=== PATIENT | female | born 1945 | race African-American/Black ===

== ENCOUNTER 2019-02-18 08:34 | Day surgery (SDC) | payer OTHER ==
[2019-02-18 09:38] LABS: BASO % 0.1 % (0-2.0); HEMOGLOBIN 8.5 GM/dL (10.7-15.3); LYMPH % 12.3 % (8-40); MCH 36.6 pg (25.7-33.7); MCHC 32.8 g/dl (32.0-36.0); MEAN CELL VOLUME 111.7 fl (80-96); MEAN PLT VOLUME 7.5 fl (7.5-11.1); MONO % 4.6 % (3.8-10.2); PLATELET COUNT 260 K/MM3 (134-434); RBC 2.33 M/mm3 (3.60-5.2); RDW 14.6 % (11.6-15.6); WHITE BLOOD COUNT 16.9 K/mm3 (4.0-10.0)
[2019-02-18] MEDS ORDERED: BORTEZOMIB (VELCADE) 2.5 MG/ML SUB-Q INJECTION SQ ONE (10:00)
[2019-02-18 10:08] LABS: ALBUMIN 2.7 g/dl (3.4-5.0); BILIRUBIN,TOTAL 0.3 mg/dL (0.2-1); BLOOD UREA NITROGEN 32.2 mg/dL (7-18); CALCIUM 8.9 mg/dL (8.5-10.1); CREATININE 1.3 mg/dL (0.55-1.3); MAGNESIUM 1.7 mg/dL (1.8-2.4); POTASSIUM 3.8 mmol/L (3.5-5.1); PREALBUMIN 21.2 mg/dl (20-40)
[2019-02-18 11:05] LABS: ANISOCYTOSIS 1+; MACROCYTOSIS 2+; PLATELET ESTIMATE NORMAL
[2019-02-18 16:01] VITALS: BP 146/53; PULSE 61; TEMP 98.2
== END 2019-02-18 10:45 | disposition home or self-care (01) ==
LOC: J7W 08:34 → JCHEMO 08:34
PROVIDERS: ATTEND Internal Medicine Hematology & Oncology
DX: Z51.11 Encounter for antineoplastic chemotherapy (principal); C90.00 Multiple myeloma not having achieved remission
CPT/HCPCS: 36415; 80053; 83735; 84134; 85025; 96401; J9041

== ENCOUNTER 2019-02-25 11:20 | Day surgery (SDC) | payer OTHER ==
[2019-02-25 12:21] LABS: BASO % 0.1 % (0-2.0); HEMATOCRIT 25.4 % (32.4-45.2); HEMOGLOBIN 8.5 GM/dL (10.7-15.3); LYMPH % 14.8 % (8-40); MCH 37.4 pg (25.7-33.7); MCHC 33.6 g/dl (32.0-36.0); MEAN CELL VOLUME 111.5 fl (80-96); MEAN PLT VOLUME 7.8 fl (7.5-11.1); MONO % 2.3 % (3.8-10.2); NEUT % 82.8 % (42.8-82.8); PLATELET COUNT 239 K/MM3 (134-434); RBC 2.28 M/mm3 (3.60-5.2); RDW 14.7 % (11.6-15.6); WHITE BLOOD COUNT 5.8 K/mm3 (4.0-10.0)
[2019-02-25 12:47] LABS: ALBUMIN 2.9 g/dl (3.4-5.0); BILIRUBIN,DIRECT 0.1 mg/dL (0.0-0.2); BILIRUBIN,TOTAL 0.2 mg/dL (0.2-1); BLOOD UREA NITROGEN 34.8 mg/dL (7-18); CALCIUM 8.8 mg/dL (8.5-10.1); CREATININE 1.4 mg/dL (0.55-1.3); MAGNESIUM 2.1 mg/dL (1.8-2.4); POTASSIUM 3.5 mmol/L (3.5-5.1)
[2019-02-25 12:50] LABS: ANISOCYTOSIS 1+; MACROCYTOSIS 1+; PLATELET ESTIMATE NORMAL
[2019-02-25] MEDS ORDERED: BORTEZOMIB (VELCADE) 2.5 MG/ML SUB-Q INJECTION SQ ONE (13:30)
[2019-02-25 18:27] VITALS: BP 113/80; PULSE 64; TEMP 98.2
== END 2019-02-25 14:00 | disposition home or self-care (01) ==
LOC: JCHEMO 11:20 → J7W 11:24 → JCHEMO 14:00
PROVIDERS: ATTEND Internal Medicine Hematology & Oncology
DX: Z51.11 Encounter for antineoplastic chemotherapy (principal); C90.00 Multiple myeloma not having achieved remission
CPT/HCPCS: 36415; 80048; 80076; 83735; 85025; 96401; J9041

== ENCOUNTER 2019-03-04 07:57 | Day surgery (SDC) | payer OTHER ==
[2019-03-04 08:27] LABS: HEMATOCRIT 24.7 % (32.4-45.2); HEMOGLOBIN 8.5 GM/dL (10.7-15.3); MCH 37.9 pg (25.7-33.7); MCHC 34.5 g/dl (32.0-36.0); MEAN CELL VOLUME 109.8 fl (80-96); MEAN PLT VOLUME 8.8 fl (7.5-11.1); PLATELET COUNT 171 K/MM3 (134-434); RBC 2.25 M/mm3 (3.60-5.2); RDW 14.1 % (11.6-15.6); WHITE BLOOD COUNT 3.6 K/mm3 (4.0-10.0)
[2019-03-04 08:44] LABS: ALBUMIN 2.7 g/dl (3.4-5.0); BILIRUBIN,DIRECT 0.1 mg/dL (0.0-0.2); BILIRUBIN,TOTAL 0.2 mg/dL (0.2-1); BLOOD UREA NITROGEN 29.9 mg/dL (7-18); CALCIUM 8.5 mg/dL (8.5-10.1); CREATININE 1.5 mg/dL (0.55-1.3); MAGNESIUM 1.9 mg/dL (1.8-2.4); POTASSIUM 3.9 mmol/L (3.5-5.1); TOT PROT 6.5 g/dl (6.4-8.2)
[2019-03-04 09:05] VITALS: BP 129/53; PULSE 60; TEMP 98.2
[2019-03-04] MEDS ORDERED: BORTEZOMIB (VELCADE) 2.5 MG/ML SUB-Q INJECTION SQ ONE (10:00)
== END 2019-03-04 09:30 | disposition home or self-care (01) ==
LOC: JCHEMO 07:57 → J7W 07:58 → JCHEMO 09:30
PROVIDERS: ATTEND Internal Medicine Hematology & Oncology
DX: Z51.11 Encounter for antineoplastic chemotherapy (principal); C90.00 Multiple myeloma not having achieved remission
CPT/HCPCS: 36415; 80048; 80076; 83735; 85027; 96401; J9041

== ENCOUNTER 2019-03-11 08:04 | Day surgery (SDC) | payer OTHER ==
[2019-03-11 09:19] LABS: HEMATOCRIT 25.6 % (32.4-45.2); HEMOGLOBIN 8.8 GM/dL (10.7-15.3); MCH 37.5 pg (25.7-33.7); MCHC 34.4 g/dl (32.0-36.0); MEAN CELL VOLUME 109.2 fl (80-96); MEAN PLT VOLUME 9.1 fl (7.5-11.1); PLATELET COUNT 195 K/MM3 (134-434); RBC 2.35 M/mm3 (3.60-5.2); RDW 14.2 % (11.6-15.6); WHITE BLOOD COUNT 3.1 K/mm3 (4.0-10.0)
[2019-03-11 09:32] LABS: ALBUMIN 2.8 g/dl (3.4-5.0); BILIRUBIN,DIRECT 0.1 mg/dL (0.0-0.2); BILIRUBIN,TOTAL 0.2 mg/dL (0.2-1); BLOOD UREA NITROGEN 23.2 mg/dL (7-18); CALCIUM 8.8 mg/dL (8.5-10.1); CREATININE 1.4 mg/dL (0.55-1.3); POTASSIUM 3.5 mmol/L (3.5-5.1); TOT PROT 6.2 g/dl (6.4-8.2)
[2019-03-11] MEDS ORDERED: BORTEZOMIB (VELCADE) 2.5 MG/ML SUB-Q INJECTION SQ ONE (10:00)
[2019-03-11 11:35] VITALS: BP 140/48; PULSE 64; TEMP 98.4
== END 2019-03-11 10:00 | disposition home or self-care (01) ==
LOC: JCHEMO 08:04 → J7W 08:05 → JCHEMO 10:00
PROVIDERS: ATTEND Internal Medicine Hematology & Oncology
DX: Z51.11 Encounter for antineoplastic chemotherapy (principal); C90.00 Multiple myeloma not having achieved remission
CPT/HCPCS: 36415; 80048; 80076; 85027; 96401; J9041

== ENCOUNTER 2019-03-18 08:07 | Day surgery (SDC) | payer OTHER | END 2019-03-18 10:45 | disposition home or self-care (01) | LOC: JCHEMO 08:07 → J7W 08:09 → JCHEMO 10:45 ==

== ENCOUNTER 2019-03-25 08:04 | Day surgery (SDC) | payer OTHER ==
[2019-03-25 09:07] LABS: BASO % 0.1 % (0-2.0); HEMATOCRIT 28.1 % (32.4-45.2); HEMOGLOBIN 9.4 GM/dL (10.7-15.3); LYMPH % 6.8 % (8-40); MCHC 33.4 g/dl (32.0-36.0); MEAN CELL VOLUME 107.7 fl (80-96); MEAN PLT VOLUME 9.5 fl (7.5-11.1); NEUT % 87.1 % (42.8-82.8); PLATELET COUNT 275 K/MM3 (134-434); RBC 2.61 M/mm3 (3.60-5.2); RDW 14.6 % (11.6-15.6); WHITE BLOOD COUNT 15.8 K/mm3 (4.0-10.0)
[2019-03-25 09:40] LABS: ALBUMIN 3.1 g/dl (3.4-5.0); BILIRUBIN,DIRECT 0.1 mg/dL (0.0-0.2); BILIRUBIN,TOTAL 0.2 mg/dL (0.2-1); CALCIUM 9.2 mg/dL (8.5-10.1); CREATININE 1.5 mg/dL (0.55-1.3); MAGNESIUM 1.8 mg/dL (1.8-2.4); POTASSIUM 4.2 mmol/L (3.5-5.1); TOT PROT 6.1 g/dl (6.4-8.2)
[2019-03-25] MEDS ORDERED: BORTEZOMIB (VELCADE) 2.5 MG/ML SUB-Q INJECTION SQ ONE (10:00)
[2019-03-25 11:08] LABS: ANISOCYTOSIS 1+; MACROCYTOSIS 1+; PLATELET ESTIMATE NORMAL
[2019-03-25 14:29] VITALS: BP 129/47; PULSE 57; TEMP 97.9
== END 2019-03-25 10:00 | disposition home or self-care (01) ==
LOC: JCHEMO 08:04 → J7W 08:06 → JCHEMO 10:00
PROVIDERS: ATTEND Internal Medicine Hematology & Oncology
DX: Z51.11 Encounter for antineoplastic chemotherapy (principal); C90.00 Multiple myeloma not having achieved remission
CPT/HCPCS: 36415; 80048; 80076; 83735; 85025; J9041

== ENCOUNTER 2019-04-01 08:09 | Day surgery (SDC) | payer OTHER ==
[2019-04-01 09:23] LABS: BASO % 0.2 % (0-2.0); EOS % 0.2 % (0-4.5); HEMATOCRIT 29.3 % (32.4-45.2); HEMOGLOBIN 9.8 GM/dL (10.7-15.3); LYMPH % 8.6 % (8-40); MCH 35.6 pg (25.7-33.7); MCHC 33.6 g/dl (32.0-36.0); MEAN PLT VOLUME 10.6 fl (7.5-11.1); MONO % 10.3 % (3.8-10.2); NEUT % 80.7 % (42.8-82.8); PLATELET COUNT 230 K/MM3 (134-434); RBC 2.76 M/mm3 (3.60-5.2); RDW 14.6 % (11.6-15.6); WHITE BLOOD COUNT 13.7 K/mm3 (4.0-10.0)
[2019-04-01 09:52] LABS: ALBUMIN 3.2 g/dl (3.4-5.0); BILIRUBIN,DIRECT 0.1 mg/dL (0.0-0.2); BILIRUBIN,TOTAL 0.4 mg/dL (0.2-1); BLOOD UREA NITROGEN 33.2 mg/dL (7-18); CALCIUM 9.6 mg/dL (8.5-10.1); CREATININE 1.5 mg/dL (0.55-1.3); POTASSIUM 4.1 mmol/L (3.5-5.1); TOT PROT 6.4 g/dl (6.4-8.2)
[2019-04-01] MEDS ORDERED: BORTEZOMIB (VELCADE) 2.5 MG/ML SUB-Q INJECTION SQ ONE (10:00)
[2019-04-01 12:36] LABS: ANISOCYTOSIS 0; MACROCYTOSIS 0; PLATELET ESTIMATE NORMAL
[2019-04-01 14:46] VITALS: BP 139/72; PULSE 57; TEMP 98.3
== END 2019-04-01 10:10 | disposition home or self-care (01) ==
LOC: JCHEMO 08:09 → J7W 08:10 → JCHEMO 10:10
PROVIDERS: ATTEND Internal Medicine Hematology & Oncology
DX: Z51.11 Encounter for antineoplastic chemotherapy (principal); C90.00 Multiple myeloma not having achieved remission
CPT/HCPCS: 36415; 80048; 80076; 83735; 85025; J9041

== ENCOUNTER 2019-04-08 08:54 | Day surgery (SDC) | payer OTHER ==
[2019-04-08 09:46] LABS: BASO % 0.3 % (0-2.0); EOS % 0.2 % (0-4.5); HEMATOCRIT 29.2 % (32.4-45.2); HEMOGLOBIN 9.9 GM/dL (10.7-15.3); LYMPH % 10.8 % (8-40); MCH 35.2 pg (25.7-33.7); MCHC 33.8 g/dl (32.0-36.0); MEAN PLT VOLUME 10.5 fl (7.5-11.1); NEUT % 75.7 % (42.8-82.8); PLATELET COUNT 189 K/MM3 (134-434); RBC 2.81 M/mm3 (3.60-5.2); WHITE BLOOD COUNT 11.5 K/mm3 (4.0-10.0)
[2019-04-08] MEDS ORDERED: BORTEZOMIB (VELCADE) 2.5 MG/ML SUB-Q INJECTION SQ ONE (10:00)
[2019-04-08 10:04] LABS: ALBUMIN 3.2 g/dl (3.4-5.0); BILIRUBIN,DIRECT 0.1 mg/dL (0.0-0.2); BILIRUBIN,TOTAL 0.3 mg/dL (0.2-1); BLOOD UREA NITROGEN 39.9 mg/dL (7-18); CALCIUM 9.5 mg/dL (8.5-10.1); CREATININE 1.7 mg/dL (0.55-1.3); MAGNESIUM 1.9 mg/dL (1.8-2.4); POTASSIUM 4.2 mmol/L (3.5-5.1); TOT PROT 6.2 g/dl (6.4-8.2)
[2019-04-08 14:44] VITALS: BP 114/56; PULSE 52; TEMP 98.3
== END 2019-04-08 11:35 | disposition home or self-care (01) ==
LOC: JCHEMO 08:54 → J7W 09:06 → JCHEMO 11:35
PROVIDERS: ATTEND Internal Medicine Hematology & Oncology
DX: Z51.11 Encounter for antineoplastic chemotherapy (principal); C90.00 Multiple myeloma not having achieved remission
CPT/HCPCS: 36415; 80048; 80076; 83735; 85025; 96401; J9041

== ENCOUNTER 2019-04-15 08:17 | Day surgery (SDC) | payer OTHER ==
[2019-04-15 09:01] LABS: BASO % 0.1 % (0-2.0); HEMATOCRIT 31.8 % (32.4-45.2); HEMOGLOBIN 10.5 GM/dL (10.7-15.3); LYMPH % 9.8 % (8-40); MCH 34.3 pg (25.7-33.7); MEAN CELL VOLUME 103.9 fl (80-96); MEAN PLT VOLUME 9.8 fl (7.5-11.1); MONO % 10.7 % (3.8-10.2); NEUT % 79.4 % (42.8-82.8); PLATELET COUNT 229 K/MM3 (134-434); RBC 3.06 M/mm3 (3.60-5.2); RDW 14.9 % (11.6-15.6); WHITE BLOOD COUNT 14.4 K/mm3 (4.0-10.0)
[2019-04-15 09:20] LABS: ALBUMIN 3.2 g/dl (3.4-5.0); BILIRUBIN,DIRECT 0.2 mg/dL (0.0-0.2); BILIRUBIN,TOTAL 0.3 mg/dL (0.2-1); BLOOD UREA NITROGEN 37.8 mg/dL (7-18); CALCIUM 9.5 mg/dL (8.5-10.1); CREATININE 1.9 mg/dL (0.55-1.3); MAGNESIUM 1.5 mg/dL (1.8-2.4); POTASSIUM 4.1 mmol/L (3.5-5.1); TOT PROT 6.1 g/dl (6.4-8.2)
[2019-04-15] MEDS ORDERED: BORTEZOMIB (VELCADE) 2.5 MG/ML SUB-Q INJECTION SQ ONE (10:00)
[2019-04-15 15:17] VITALS: BP 124/51; PULSE 59; TEMP 98.3
== END 2019-04-15 10:35 | disposition home or self-care (01) ==
LOC: JCHEMO 08:17 → J7W 08:18 → JCHEMO 10:35
PROVIDERS: ATTEND Internal Medicine Hematology & Oncology
DX: Z51.11 Encounter for antineoplastic chemotherapy (principal); C90.00 Multiple myeloma not having achieved remission
CPT/HCPCS: 36415; 80048; 80076; 83735; 85025; J9041

== ENCOUNTER 2019-04-22 08:06 | Day surgery (SDC) | payer OTHER ==
[2019-04-22 08:51] LABS: BASO % 0.3 % (0-2.0); EOS % 0.2 % (0-4.5); LYMPH % 9.7 % (8-40); MCH 34.1 pg (25.7-33.7); MCHC 33.3 g/dl (32.0-36.0); MEAN CELL VOLUME 102.6 fl (80-96); MONO % 7.4 % (3.8-10.2); NEUT % 82.4 % (42.8-82.8); PLATELET COUNT 205 K/MM3 (134-434); RBC 2.93 M/mm3 (3.60-5.2); RDW 15.2 % (11.6-15.6); WHITE BLOOD COUNT 12.8 K/mm3 (4.0-10.0)
[2019-04-22 09:17] VITALS: BP 111/45; PULSE 62; TEMP 98.3
[2019-04-22 09:17] LABS: ALBUMIN 3.1 g/dl (3.4-5.0); BILIRUBIN,DIRECT 0.1 mg/dL (0.0-0.2); BILIRUBIN,TOTAL 0.3 mg/dL (0.2-1); BLOOD UREA NITROGEN 45.6 mg/dL (7-18); CALCIUM 9.8 mg/dL (8.5-10.1); CREATININE 1.9 mg/dL (0.55-1.3); MAGNESIUM 1.9 mg/dL (1.8-2.4); POTASSIUM 4.1 mmol/L (3.5-5.1); TOT PROT 5.9 g/dl (6.4-8.2)
[2019-04-22] MEDS ORDERED: BORTEZOMIB (VELCADE) 2.5 MG/ML SUB-Q INJECTION SQ ONE (10:00)
[2019-04-22 10:24] LABS: ANISOCYTOSIS 0; MACROCYTOSIS 0; PLATELET ESTIMATE NORMAL
== END 2019-04-22 09:40 | disposition home or self-care (01) ==
LOC: JCHEMO 08:06 → J7W 08:09 → JCHEMO 09:40
PROVIDERS: ATTEND Internal Medicine Hematology & Oncology
DX: Z51.11 Encounter for antineoplastic chemotherapy (principal); C90.00 Multiple myeloma not having achieved remission
CPT/HCPCS: 36415; 80048; 80076; 83735; 85025; J9041

== ENCOUNTER 2019-04-29 08:12 | Day surgery (SDC) | payer OTHER ==
[2019-04-29 08:56] LABS: BASO % 0.3 % (0-2.0); EOS % 0.3 % (0-4.5); HEMATOCRIT 31.2 % (32.4-45.2); HEMOGLOBIN 10.2 GM/dL (10.7-15.3); LYMPH % 18.5 % (8-40); MCH 33.2 pg (25.7-33.7); MCHC 32.8 g/dl (32.0-36.0); MEAN PLT VOLUME 10.7 fl (7.5-11.1); MONO % 10.5 % (3.8-10.2); NEUT % 70.4 % (42.8-82.8); PLATELET COUNT 135 K/MM3 (134-434); RBC 3.09 M/mm3 (3.60-5.2); RDW 14.8 % (11.6-15.6); WHITE BLOOD COUNT 12.2 K/mm3 (4.0-10.0)
[2019-04-29 09:19] LABS: ALBUMIN 3.1 g/dl (3.4-5.0); BILIRUBIN,DIRECT 0.2 mg/dL (0.0-0.2); BILIRUBIN,TOTAL 0.3 mg/dL (0.2-1); BLOOD UREA NITROGEN 40.2 mg/dL (7-18); CALCIUM 9.7 mg/dL (8.5-10.1); CREATININE 2.2 mg/dL (0.55-1.3); MAGNESIUM 1.9 mg/dL (1.8-2.4); POTASSIUM 4.5 mmol/L (3.5-5.1); TOT PROT 5.7 g/dl (6.4-8.2)
[2019-04-29] MEDS ORDERED: BORTEZOMIB (VELCADE) 2.5 MG/ML SUB-Q INJECTION SQ ONE (10:00)
[2019-04-29 11:59] LABS: ANISOCYTOSIS 1+; MACROCYTOSIS 1+; OVALOCYTE 1+; PLATELET ESTIMATE DECREASED
[2019-04-29 14:37] VITALS: BP 102/66; PULSE 60; TEMP 97.8
== END 2019-04-29 10:20 | disposition home or self-care (01) ==
LOC: JONCCHEMO 08:12 → J7W 08:18 → JONCCHEMO 10:20
PROVIDERS: ATTEND Internal Medicine Hematology & Oncology
DX: Z51.11 Encounter for antineoplastic chemotherapy (principal); C90.00 Multiple myeloma not having achieved remission
CPT/HCPCS: 36415; 80053; 80076; 83735; 85025; J9041

== ENCOUNTER 2019-05-15 10:57 | Day surgery (SDC) | payer OTHER ==
[~2019-05-15 10:57] MED LIST: BORTEZOMIB (VELCADE) 2.5 MG/ML SUB-Q INJECTION SQ ONE
[2019-05-15 11:54] LABS: BASO % 0.6 % (0-2.0); EOS % 1.7 % (0-4.5); HEMATOCRIT 28.9 % (32.4-45.2); HEMOGLOBIN 9.7 GM/dL (10.7-15.3); LYMPH % 19.1 % (8-40); MCH 33.5 pg (25.7-33.7); MCHC 33.4 g/dl (32.0-36.0); MEAN CELL VOLUME 100.3 fl (80-96); MONO % 16.9 % (3.8-10.2); NEUT % 61.7 % (42.8-82.8); PLATELET COUNT 377 K/MM3 (134-434); RBC 2.88 M/mm3 (3.60-5.2); RDW 15.7 % (11.6-15.6); WHITE BLOOD COUNT 10.9 K/mm3 (4.0-10.0)
[2019-05-15 12:21] LABS: ALBUMIN 2.9 g/dl (3.4-5.0); BILIRUBIN,DIRECT 0.1 mg/dL (0.0-0.2); BILIRUBIN,TOTAL 0.3 mg/dL (0.2-1); BLOOD UREA NITROGEN 25.1 mg/dL (7-18); CALCIUM 9.1 mg/dL (8.5-10.1); CREATININE 1.5 mg/dL (0.55-1.3); MAGNESIUM 1.8 mg/dL (1.8-2.4); POTASSIUM 3.7 mmol/L (3.5-5.1); TOT PROT 5.5 g/dl (6.4-8.2)
[2019-05-15 13:52] VITALS: BP 106/49; PULSE 57; TEMP 98.1
== END 2019-05-15 11:45 | disposition home or self-care (01) ==
LOC: JCHEMO 10:57 → J7W 10:58 → JCHEMO 11:45
PROVIDERS: ATTEND Internal Medicine Hematology & Oncology
DX: Z51.11 Encounter for antineoplastic chemotherapy (principal); C90.00 Multiple myeloma not having achieved remission
CPT/HCPCS: 36415; 80048; 80076; 83735; 85025; 96401; J9041

== ENCOUNTER 2019-05-22 08:52 | Day surgery (SDC) | payer OTHER ==
[2019-05-22 09:25] LABS: BASO % 1.2 % (0-2.0); EOS % 10.2 % (0-4.5); HEMATOCRIT 29.5 % (32.4-45.2); HEMOGLOBIN 9.9 GM/dL (10.7-15.3); LYMPH % 15.5 % (8-40); MCH 33.2 pg (25.7-33.7); MCHC 33.6 g/dl (32.0-36.0); MEAN CELL VOLUME 98.7 fl (80-96); MONO % 11.9 % (3.8-10.2); NEUT % 61.2 % (42.8-82.8); PLATELET COUNT 200 K/MM3 (134-434); RBC 2.99 M/mm3 (3.60-5.2); RDW 15.9 % (11.6-15.6); WHITE BLOOD COUNT 10.6 K/mm3 (4.0-10.0)
[2019-05-22] MEDS ORDERED: BORTEZOMIB (VELCADE) 2.5 MG/ML SUB-Q INJECTION SQ ONE (10:00)
[2019-05-22 10:02] LABS: ALBUMIN 3.1 g/dl (3.4-5.0); BILIRUBIN,DIRECT 0.1 mg/dL (0.0-0.2); BILIRUBIN,TOTAL 0.3 mg/dL (0.2-1); CALCIUM 9.1 mg/dL (8.5-10.1); CREATININE 1.4 mg/dL (0.55-1.3); MAGNESIUM 2.2 mg/dL (1.8-2.4); TOT PROT 5.6 g/dl (6.4-8.2)
[2019-05-22 14:08] VITALS: BP 127/54; PULSE 64; TEMP 98.9
== END 2019-05-22 11:20 | disposition home or self-care (01) ==
LOC: JCHEMO 08:52 → J7W 08:53 → JCHEMO 11:20
PROVIDERS: ATTEND Internal Medicine Hematology & Oncology
DX: Z51.11 Encounter for antineoplastic chemotherapy (principal); C90.00 Multiple myeloma not having achieved remission
CPT/HCPCS: 36415; 80048; 80076; 83735; 85025; 96401; J9041

== ENCOUNTER 2019-05-29 13:27 | Day surgery (SDC) | payer OTHER ==
[2019-05-29 14:06] LABS: BASO % 0.8 % (0-2.0); EOS % 1.2 % (0-4.5); HEMATOCRIT 32.3 % (32.4-45.2); HEMOGLOBIN 10.7 GM/dL (10.7-15.3); LYMPH % 10.3 % (8-40); MCH 32.6 pg (25.7-33.7); MCHC 32.9 g/dl (32.0-36.0); MEAN PLT VOLUME 9.3 fl (7.5-11.1); MONO % 3.7 % (3.8-10.2); PLATELET COUNT 216 K/MM3 (134-434); RBC 3.27 M/mm3 (3.60-5.2); RDW 16.2 % (11.6-15.6); WHITE BLOOD COUNT 9.5 K/mm3 (4.0-10.0)
[2019-05-29 14:42] LABS: ALBUMIN 3.2 g/dl (3.4-5.0); BILIRUBIN,DIRECT 0.1 mg/dL (0.0-0.2); BILIRUBIN,TOTAL 0.3 mg/dL (0.2-1); BLOOD UREA NITROGEN 17.1 mg/dL (7-18); CALCIUM 9.4 mg/dL (8.5-10.1); CREATININE 1.4 mg/dL (0.55-1.3); MAGNESIUM 1.9 mg/dL (1.8-2.4); POTASSIUM 4.5 mmol/L (3.5-5.1); TOT PROT 6.1 g/dl (6.4-8.2)
[2019-05-29] MEDS ORDERED: BORTEZOMIB (VELCADE) 2.5 MG/ML SUB-Q INJECTION SQ ONE (15:30)
[2019-05-29 17:12] VITALS: BP 95/41; PULSE 56; TEMP 98
== END 2019-05-29 15:30 | disposition home or self-care (01) ==
LOC: J7W 13:27 → JCHEMO 13:27
PROVIDERS: ATTEND Internal Medicine Hematology & Oncology
DX: Z51.11 Encounter for antineoplastic chemotherapy (principal); C90.00 Multiple myeloma not having achieved remission
CPT/HCPCS: 36415; 80048; 80076; 83735; 85025; 96401; J9041

== ENCOUNTER 2019-06-05 08:37 | Day surgery (SDC) | payer OTHER ==
[2019-06-05 09:31] LABS: BASO % 0.5 % (0-2.0); EOS % 8.3 % (0-4.5); HEMATOCRIT 28.2 % (32.4-45.2); HEMOGLOBIN 9.4 GM/dL (10.7-15.3); LYMPH % 11.3 % (8-40); MCH 32.7 pg (25.7-33.7); MCHC 33.3 g/dl (32.0-36.0); MEAN CELL VOLUME 98.4 fl (80-96); MEAN PLT VOLUME 9.4 fl (7.5-11.1); MONO % 12.3 % (3.8-10.2); NEUT % 67.6 % (42.8-82.8); PLATELET COUNT 210 K/MM3 (134-434); RBC 2.86 M/mm3 (3.60-5.2); RDW 16.5 % (11.6-15.6); WHITE BLOOD COUNT 7.3 K/mm3 (4.0-10.0)
[2019-06-05 09:57] LABS: ALBUMIN 2.8 g/dl (3.4-5.0); BILIRUBIN,DIRECT 0.1 mg/dL (0.0-0.2); BILIRUBIN,TOTAL 0.4 mg/dL (0.2-1); BLOOD UREA NITROGEN 32.6 mg/dL (7-18); CALCIUM 8.8 mg/dL (8.5-10.1); CREATININE 1.6 mg/dL (0.55-1.3); MAGNESIUM 2.4 mg/dL (1.8-2.4); POTASSIUM 4.3 mmol/L (3.5-5.1); TOT PROT 5.2 g/dl (6.4-8.2)
[2019-06-05] MEDS ORDERED: BORTEZOMIB (VELCADE) 2.5 MG/ML SUB-Q INJECTION SQ ONE (10:00)
[2019-06-05 11:27] VITALS: BP 128/52; PULSE 63; TEMP 98.3
[2019-06-05 14:30] LABS: ANISOCYTOSIS 2+; MACROCYTOSIS 0; OVALOCYTE 1+; PLATELET ESTIMATE NORMAL; TEAR DROP CELLS 1+
== END 2019-06-05 11:20 | disposition home or self-care (01) ==
LOC: JCHEMO 08:37 → J7W 08:40 → JCHEMO 11:20
PROVIDERS: ATTEND Internal Medicine Hematology & Oncology
DX: Z51.11 Encounter for antineoplastic chemotherapy (principal); C90.00 Multiple myeloma not having achieved remission
CPT/HCPCS: 36415; 80048; 80076; 83735; 85025; 96401; J9041

== ENCOUNTER 2019-07-24 21:24 | Emergency (ER) | payer OTHER ==
[2019-07-24 21:50] VITALS: BP 106/52; PULSE 68; TEMP 98; BMI 43.9
--- NOTE | 2019-07-24 22:38 | PDOC ---
History of Present Illness - General Chief Complaint: Pain, Acute Stated Complaint: WEAKNESS Time Seen by Provider: 07/24/19 22:33 - History of Present Illness Initial Comments: 07/25/19 00:15 Ms. Cruz is a 74 year old F with a pmhx of multiple myeloma, hypothyroidism, HTN, and HLD presenting with R sided abdominal/ flank pain which began late this afternoon. Per the patient, she was in her usual state of health until she began having this R sided pain. She didn't recall any inciting event, earlier in the day she attributed the pain to muscle spasms but it worsened throughout the day until it became unbearable. The pain is waxing and waning but never fully remits. It does not radiate anywhere. The pt has had a hysterectomy and cholecystectomy in the past but she still has her GB. She denies any N/V/C/D. Her last BM was yesterday and it was normal. Past History - Past Medical History Allergies/Adverse Reactions: Allergies Allergy/AdvReac Type Severity Reaction Status Date / Time No Known Allergies Allergy Verified 02/18/19 09:01 Home Medications: Ambulatory Orders Atorvastatin Calcium [Lipitor] 20 mg PO DAILY 02/18/19 Bupropion HCl [Wellbutrin Sr] 450 mg PO DAILY 02/18/19 Dexamethasone [Decadron] 20 mg PO WEEKLY 02/18/19 Diltiazem Cd [Cardizem Cd -] 120 mg PO DAILY 02/18/19 Enalapril Maleate [Vasotec] 20 mg PO DAILY 02/18/19 Levothyroxine Sodium [Synthroid] 137 mcg PO DAILY 02/18/19 Magnesium Oxide [Magnesium] 400 mg PO DAILY 02/18/19 Metoprolol Succinate [Toprol Xl -] 50 mg PO DAILY 02/18/19 Multivitamin [One-Daily Multi-Vitamin] 1 each PO DAILY 02/18/19 Quetiapine Fumarate [Seroquel -] 50 mg PO HS 02/18/19 Aspirin 81 mg PO DAILY 02/25/19 Lasix 40 mg PO PRN PRN 03/25/19 COPD: No HTN: Yes Hypercholesterolemia: Yes Other medical history: mulitple myeloma, hypothyroidism - Psycho Social/Smoking Cessation Hx Smoking History: Never smoked Review of Systems - Review of Systems Constitutional: Yes: Loss of Appetite, Malaise. No: Chills, Diaphoresis, Night Sweats HEENTM: No: Eye Pain, Recent change in vision, Throat Pain, Throat Swelling Respiratory: No: Cough, Shortness of Breath Cardiac (ROS): No: Chest Pain ABD/GI: Yes: Nausea, Abdominal cramping. No: Abdominal Distended, Abd. Pain w/ defecation, Constipated, Diarrhea, Vomiting Integumentary: No: Erythema, Lesions, Pruritus, Rash Neurological: No: Headache, Numbness, Paresthesia, Tingling, Tremors Endocrine: No: Intolerance to Cold, Intolerance to Heat, Unexplained Weight Gain , Unexplained Weight Loss All Other Systems: Reviewed and Negative *Physical Exam - Vital Signs Last Vital Signs Temp Pulse Resp BP Pulse Ox 98 F 68 19 106/52 L 99 07/24/19 21:44 07/24/19 21:44 07/24/19 21:44 07/24/19 21:44 07/24/19 21:44 - Physical Exam General Appearance: Yes: Nourished, Appropriately Dressed, Obese. No: Apparent Distress HEENT: positive: EOMI, SAI, Normal ENT Inspection Neck: positive: Trachea midline, Supple. negative: Tender Respiratory/Chest: positive: Lungs Clear, Normal Breath Sounds. negative: Respiratory Distress, Accessory Muscle Use Cardiovascular: positive: Regular Rhythm, Regular Rate, S1, S2. negative: JVD Gastrointestinal/Abdominal: positive: Normal Bowel Sounds, Tender (in RUQ and R flank), Soft, Guarding (in RUQ). negative: Rebound Musculoskeletal: positive: Normal Inspection, CVA Tenderness (R). negative: Vertebral Tenderness Extremity: positive: Normal Capillary Refill, Normal Inspection, Normal Range of Motion, Pedal Edema (bilateral trace pedal edema). negative: Calf Tenderness Integumentary: positive: Normal Color, Dry, Warm Neurologic: positive: drapery worker II-XII NML intact, Fully Oriented, Alert, Normal Mood/ Affect, Motor Strength 5/5 Medical Decision Making - Medical Decision Making Ms. Cruz is a 74 year old F with a pmhx of multiple myeloma, hypothyroidism, HTN, and HLD presenting with R sided abdominal/ flank pain which began late this afternoon. Given pt past hx of abdominal surgery sx could be reflective of bowel obstruction. Pt also had some CVA tenderness on exam so possibly could have kidney stone. Will obtain - CBC - CMP - Lipase - Abdominal CT -EKG 07/25/19 00:33
[2019-07-24] MEDS ORDERED: morphine CARPU-JECT 4 MG/1 ML DISP.SYRIN IVPUSH ONE (23:16)
[2019-07-25] MEDS ORDERED: morphine SULFATE 4 MG/ML VIAL ONE (00:59)
[2019-07-25 01:05] LABS: BASO % 0.4 % (0-2.0); EOS % 2.1 % (0-4.5); HEMATOCRIT 29.3 % (32.4-45.2); HEMOGLOBIN 9.5 GM/dL (10.7-15.3); LYMPH % 10.6 % (8-40); MCH 30.6 pg (25.7-33.7); MCHC 32.4 g/dl (32.0-36.0); MEAN CELL VOLUME 94.4 fl (80-96); MEAN PLT VOLUME 8.6 fl (7.5-11.1); MONO % 19.1 % (3.8-10.2); NEUT % 67.8 % (42.8-82.8); PLATELET COUNT 271 K/MM3 (134-434); RDW 18.3 % (11.6-15.6); WHITE BLOOD COUNT 13.4 K/mm3 (4.0-10.0)
[2019-07-25 01:31] LABS: ALBUMIN 2.6 g/dl (3.4-5.0); BILIRUBIN,TOTAL 0.4 mg/dL (0.2-1); BLOOD UREA NITROGEN 13.2 mg/dL (7-18); CALCIUM 8.6 mg/dL (8.5-10.1); CREATININE 1.1 mg/dL (0.55-1.3); POTASSIUM 3.3 mmol/L (3.5-5.1); TOT PROT 5.2 g/dl (6.4-8.2)
[2019-07-25 01:57] LABS: URINE APPEARANCE CLEAR; URINE BILIRUBIN NEGATIVE (NEGATIVE); URINE COLOR YELLOW; URINE GLUCOSE (UA) NEGATIVE (NEGATIVE); URINE KETONE NEGATIVE (NEGATIVE); URINE LEUK ESTERASE NEGATIVE (NEGATIVE); URINE NITRITE NEGATIVE (NEGATIVE); URINE PROTEIN TRACE (NEGATIVE)
--- NOTE | 2019-07-25 02:17 | PDOC ---
Documentation entered by Donaldo Norton SCRIBE, acting as scribe for Mariaelena Rhoades MD. Mariaelena Rhoades MD: This documentation has been prepared by the Errol jeff Daniel, SCRIBE, under my direction and personally reviewed by me in its entirety. I confirm that the documentation accurately reflects all work, treatment, procedures, and medical decision making performed by me. Attending Attestation - Resident Resident Name: Katelyn Bustos - ED Attending Attestation I have performed the following: I have examined & evaluated the patient, The case was reviewed & discussed with the resident, I agree w/resident's findings & plan, Exceptions are as noted - HPI HPI: 07/25/19 01:36 The patient is a 74 year old female with a past medical history of multiple myeloma, hypothyroidism, HTN, and HLD here today for evaluation of right flank pain. The patient reports that her right flank pain began this afternoon and has been worsening since then. She states that the severity of her pain is intermittent but never fully goes away. has had prior abd surgeries of hysterectomy and cholecystectomy. no know h/o renal colic. no fc no other complaints. Patient denies headache, lightheadedness. Denies fever, chills. Denies chest pain, shortness of breath. Denies nausea, vomiting, diarrhea. Allergies: NKA 07/25/19 02:15 - Physicial Exam PE: 07/25/19 02:16 awake alert lungs clear bilat heart rrr nomrg abd soft mild right mid rlq ttp no rebound no guarding. no cva tenderness. skin warm and dry . alert oriented x 3. - Medical Decision Making 07/25/19 02:16 74 yo F here with riht sided abd pain. diferential renal colic, pyelo, uti, appendicitis sbo. pln ct ap, ua ucs/ iv fluids and pain control. 07/25/19 02:17 signed out to oncoming attending pendings results.
[2019-07-25] MEDS ORDERED: POTASSIUM CHLORIDE TABS 20 MEQ TABLET.ER (FP) PO ONE ×2 (02:20→03:51)
[2019-07-25] MEDS ORDERED: KETOROLAC TROMETHAMINE 30 MG/1 ML VIAL IVPUSH ONE (03:49)
[2019-07-25] MEDS ORDERED: KETOROLAC TROMETHAMINE 30 MG/1 ML VIAL ONE (03:51)
[2019-07-25] MEDS: MAGNESIUM SULF 50% (8.12 MEQ/2 ML-1 GM VIAL) IVPB ONE ×3 (04:00→05:54)
--- NOTE | 2019-07-25 05:24 | PDOC ---
*Physical Exam - Vital Signs Last Vital Signs Temp Pulse Resp BP Pulse Ox 98 F 68 19 106/52 L 99 07/24/19 21:44 07/24/19 21:44 07/24/19 21:44 07/24/19 21:44 07/24/19 21:44 ED Treatment Course - LABORATORY CBC & Chemistry Diagram: 07/25/19 00:50 07/25/19 00:50 - ADDITIONAL ORDERS Additional order review: Laboratory Results 07/25/19 07/25/19 07/25/19 01:44 00:50 00:50 Sodium 141 Potassium 3.3 L Chloride 103 Carbon Dioxide 29 Anion Gap 9 BUN 13.2 Creatinine 1.1 Est GFR (CKD-EPI)AfAm 57.68 Est GFR (CKD-EPI)NonAf 49.77 Random Glucose 122 H Calcium 8.6 Total Bilirubin 0.4 AST 10 L ALT 19 Alkaline Phosphatase 144 H Total Protein 5.2 L Albumin 2.6 L Lipase 89 Urine Color Yellow Urine Appearance Clear Urine pH 7.0 Ur Specific Naylor 1.022 Urine Protein Trace Urine Glucose (UA) Negative Urine Ketones Negative Urine Blood Negative Urine Nitrite Negative Urine Bilirubin Negative Urine Urobilinogen 1.0 Ur Leukocyte Esterase Negative 07/25/19 00:50 RBC 3.10 L MCV 94.4 MCHC 32.4 RDW 18.3 H MPV 8.6 Neutrophils % 67.8 Lymphocytes % 10.6 Monocytes % 19.1 H Eosinophils % 2.1 Basophils % 0.4 - Medications Given in the ED: ED Medications Discontinued Medications Generic Name Dose Route Start Last Admin Trade Name Adam PRN Reason Stop Dose Admin Ketorolac Tromethamine 30 mg 07/25/19 03:49 07/25/19 04:34 Toradol Injection - IVPUSH 07/25/19 03:50 30 mg ONCE ONE Administration Morphine Sulfate 4 mg 07/24/19 23:16 07/25/19 01:04 Morphine Injection - IVPUSH 07/24/19 23:17 4 mg ONCE ONE Administration Potassium Chloride 40 meq 07/25/19 02:20 07/25/19 04:00 K-Dur - PO 07/25/19 02:21 40 meq ONCE ONE Administration Medical Decision Making - Medical Decision Making 07/25/19 05:23 Patient Name: SEBASTIEN CERVANTES THIS IS A PRELIMINARY REPORT FROM [facility] [employer] DATE OF SERVICE: 2019-07-25 02:20:54 IMAGES: [id number] EXAM: CT ABDOMEN WITH CONTRAST AND CT PELVIS WITH CONTRAST HISTORY: 74-Year-Old Female Right Lower Quadrant Pain Assess For Appendicitis. COMPARISON: None. CONTRAST: 98 mL of intravenous contrast. FINDINGS: Lack of oral contrast limits this exam. Mild basilar atelectasis and scarring. Mild cardiomegaly. Moderate calcified arteriosclerosis of the aorta and aortic branches and pelvic vasculature. Status post cholecystectomy the common bile duct is mildly dilated. Liver pancreas spleen adrenal glands kidneys appear unremarkable. Small hiatal hernia. Noncontrast evaluation stomach and small bowel and appendix appear unremarkable. No appendicitis. Mild nonspecific wall thickening of the hepatic flexure of the colon most likely due to mild infectious colitis or diverticulitis. Mild nonspecific bladder wall thickening may be due to infectious cystitis. Partial hysterectomy. Moderate to severe degenerative disc disease and degenerative joint disease of the facets in the lower lumbar spine. Moderate to severe spinal canal narrowing and neural foraminal narrowing in the lower lumbar levels. Significant subcutaneous adipose tissue is incompletely included within the [id number]. IMPRESSION: Mild cardiomegaly. Moderate calcified arteriosclerosis of the aorta and aortic branches and pelvic vasculature. Status post cholecystectomy the common bile duct is mildly dilated. Small hiatal hernia. Mild nonspecific wall thickening of the hepatic flexure of the colon most likely due to mild infectious colitis or diverticulitis. Mild nonspecific bladder wall thickening may be due to infectious cystitis. Moderate to severe spinal canal narrowing and neural foraminal narrowing in the lower lumbar levels. This CT exam was performed using one or more of the following dose reduction techniques: automated exposure control, adjustment of the mA and/or kV according to patient size, use of iterative reconstruction technique. Discharge - Discharge Information Problems reviewed: Yes Clinical Impression/Diagnosis: Colitis, Cystitis Condition: Stable Disposition: HOME - Admission No - Additional Discharge Information Prescriptions: Amoxicillin/Potassium Clav [Augmentin 875-125 Tablet] 1 each PO BID #14 tablet - Follow up/Referral - Patient Discharge Instructions Patient Printed Discharge Instructions: Acute Cystitis, DI for Colitis - Post Discharge Activity
[2019-07-25] MEDS ORDERED: AMOX TR/POT CLAV 875MG/125MG TABLETS (FP) PO ONE (05:32)
[2019-07-25] MEDS ORDERED: MAGNESIUM SULF 50% (8.12 MEQ/2 ML-1 GM VIAL) IVPB ONE (05:36)
[2019-07-25] MEDS ORDERED: MAGNESIUM 1GM/D5W - 1 GM/100 ML IVPB IVPB ONE (05:38)
--- NOTE | 2019-07-27 11:34 | EKG ---
Test Reason : Blood Pressure : / mmHG Vent. Rate : 063 BPM Atrial Rate : 063 BPM P-R Int : 158 ms QRS Dur : 094 ms QT Int : 464 ms P-R-T Axes : 063 -03 086 degrees QTc Int : 474 ms NORMAL SINUS RHYTHM POSSIBLE LEFT ATRIAL ENLARGEMENT LEFT VENTRICULAR HYPERTROPHY PROLONGED QT ABNORMAL ECG NO PREVIOUS ECGS AVAILABLE Confirmed by BEVERLEY CONRAD MD ([id number]) on 07/27/2019 11:34:08 AM Referred By: Confirmed By:BEVERLEY CONRAD MD
== END 2019-07-25 07:04 | disposition home or self-care (01) ==
LOC: JER 21:24
PROC: 3E033NZ Introduction of Analgesics, Hypnotics, Sedatives into Peripheral Vein, Percutaneous Approach (ICD-10-PCS; principal; 2019-07-24)
PROC: 3E0333Z Introduction of Anti-inflammatory into Peripheral Vein, Percutaneous Approach (ICD-10-PCS; 2019-07-24)
PROC: 3E033GC Introduction of Other Therapeutic Substance into Peripheral Vein, Percutaneous Approach (ICD-10-PCS; 2019-07-24)
DX: N30.00 Acute cystitis without hematuria (principal); K52.9 Noninfective gastroenteritis and colitis, unspecified; I10 Essential (primary) hypertension; E78.5 Hyperlipidemia, unspecified; E78.00 Pure hypercholesterolemia, unspecified; E03.9 Hypothyroidism, unspecified; Z85.79 Personal history of other malignant neoplasms of lymphoid, hematopoietic and related tissues
CPT/HCPCS: 36415; 74177-TC; 80053; 81003; 83690; 85025; 87086; 93005; 93010; 99282-25

== ENCOUNTER 2022-01-16 10:53 | Day surgery (SDC) | payer BC, OTHER ==
[~2022-01-16 10:53] MED LIST changes: +ACETAMINOPHEN 325 MG TABLET (FP) PO ONE; -BORTEZOMIB (VELCADE) 2.5 MG/ML SUB-Q INJECTION SQ ONE; +DARATUMUMAB-HYALURONIDASE-FIHJ (FASPRO) 15 ML VIAL SQ ONE; +DEXAMETHASONE 4 MG TABLET (FP) PO ONE; +MONTELUKAST NA 10 MG TABLET PO ONE; +diphenhydrAMINE HCL 25 MG CAPSULE (FP) PO ONE
[2022-01-16 12:11] LABS: BASO % 0.3 % (0-2.0); HEMATOCRIT 34.1 % (32.4-45.2); HEMOGLOBIN 11.5 GM/dL (10.7-15.3); LYMPH % 39.4 % (8-40); MCH 32.9 pg (25.7-33.7); MCHC 33.7 g/dl (32.0-36.0); MEAN CELL VOLUME 97.6 fl (80-96); MEAN PLT VOLUME 7.9 fl (7.5-11.1); MONO % 11.9 % (3.8-10.2); NEUT % 47.4 % (42.8-82.8); PLATELET COUNT 279 10^3/uL (134-434); RBC 3.49 M/mm3 (3.60-5.2); RDW 16.7 % (11.6-15.6); WHITE BLOOD COUNT 9.2 K/mm3 (4.0-10.0)
[2022-01-16 12:35] LABS: BLOOD UREA NITROGEN 50.5 mg/dL (7-18)
[2022-01-16 12:37] LABS: ALBUMIN 2.4 g/dl (3.4-5.0)
[2022-01-16 12:38] LABS: CREATININE 1.8 mg/dL (0.55-1.3)
[2022-01-16 12:40] LABS: BILIRUBIN,DIRECT 0.2 mg/dL (0.0-0.2)
[2022-01-16 12:42] LABS: BILIRUBIN,TOTAL 0.4 mg/dL (0.2-1)
[2022-01-16 12:43] LABS: TOT PROT 8.4 g/dl (6.4-8.2)
[2022-01-16 18:29] VITALS: TEMP 97.7
[2022-01-16 18:37] VITALS: BP 128/50; PULSE 58
[2022-01-18 16:09] LABS: FREE KAPPA,SERUM 785.1 mg/L (3.3-19.4)
== END 2022-01-16 14:30 | disposition home or self-care (01) ==
LOC: JCHEMO 10:53 → J7W 10:56 → JCHEMO 14:30
PROVIDERS: ATTEND Internal Medicine Hematology & Oncology
DX: Z51.11 Encounter for antineoplastic chemotherapy (principal); C90.00 Multiple myeloma not having achieved remission; I10 Essential (primary) hypertension; E78.5 Hyperlipidemia, unspecified; E03.9 Hypothyroidism, unspecified; M19.90 Unspecified osteoarthritis, unspecified site; G62.9 Polyneuropathy, unspecified
CPT/HCPCS: 36415; 80048; 80076; 82784; 83883; 84155; 84165; 85025; 96401; J9144

== ENCOUNTER 2022-01-23 10:58 | Day surgery (SDC) | payer BC, OTHER ==
[~2022-01-23 10:58] MED LIST changes: -MONTELUKAST NA 10 MG TABLET PO ONE
[2022-01-23 11:46] LABS: BASO % 0.2 % (0-2.0); EOS % 2.3 % (0-4.5); HEMATOCRIT 32.4 % (32.4-45.2); HEMOGLOBIN 10.8 GM/dL (10.7-15.3); LYMPH % 27.9 % (8-40); MCH 32.8 pg (25.7-33.7); MCHC 33.2 g/dl (32.0-36.0); MEAN CELL VOLUME 98.7 fl (80-96); MEAN PLT VOLUME 7.9 fl (7.5-11.1); MONO % 17.9 % (3.8-10.2); NEUT % 51.7 % (42.8-82.8); PLATELET COUNT 217 10^3/uL (134-434); RBC 3.28 M/mm3 (3.60-5.2); RDW 16.9 % (11.6-15.6); WHITE BLOOD COUNT 4.8 K/mm3 (4.0-10.0)
[2022-01-23 12:12] LABS: CHLORIDE 125 mmol/L (98-107)
[2022-01-23 12:13] LABS: CALCIUM 8.5 mg/dL (8.5-10.1)
[2022-01-23 12:14] LABS: BLOOD UREA NITROGEN 28.1 mg/dL (7-18); CO2 25 mmol/L (21-32); GLUCOSE,RANDOM 96 mg/dL (74-106)
[2022-01-23 12:17] LABS: CREATININE 1.3 mg/dL (0.55-1.3)
[2022-01-23 12:21] LABS: ANION GAP 11 MMOL/L (8-16); SODIUM 162 mmol/L (136-145)
[2022-01-23 15:37] LABS: ALBUMIN 2.3 g/dl (3.4-5.0)
[2022-01-23 15:39] LABS: URIC ACID 11.2 mg/dL (2.6-7.2)
[2022-01-23 15:40] LABS: BILIRUBIN,DIRECT 0.1 mg/dL (0.0-0.2)
[2022-01-23 15:42] LABS: BILIRUBIN,TOTAL 0.3 mg/dL (0.2-1)
[2022-01-23] MEDS ORDERED: ALLOPURINOL 300 MG TABLET (FP) PO ONE (16:00)
[2022-01-23 18:31] VITALS: TEMP 98.8
[2022-01-23 18:38] VITALS: BP 152/84; PULSE 51
== END 2022-01-23 17:00 | disposition home or self-care (01) ==
LOC: JCHEMO 10:58 → J7W 10:59 → JCHEMO 17:00
PROVIDERS: ATTEND Internal Medicine Hematology & Oncology
DX: Z51.11 Encounter for antineoplastic chemotherapy (principal); C90.00 Multiple myeloma not having achieved remission; I10 Essential (primary) hypertension; E78.5 Hyperlipidemia, unspecified; E03.9 Hypothyroidism, unspecified; M19.90 Unspecified osteoarthritis, unspecified site; G62.9 Polyneuropathy, unspecified
CPT/HCPCS: 36415; 80048; 80076; 84295; 84550; 85025; 96401; J9144

== ENCOUNTER 2022-01-30 10:44 | Day surgery (SDC) | payer BC, OTHER ==
[2022-01-30 12:03] LABS: BASO % 0.2 % (0-2.0); EOS % 2.4 % (0-4.5); HEMATOCRIT 29.9 % (32.4-45.2); LYMPH % 36.6 % (8-40); MCHC 33.6 g/dl (32.0-36.0); MEAN CELL VOLUME 98.1 fl (80-96); MEAN PLT VOLUME 7.9 fl (7.5-11.1); MONO % 12.6 % (3.8-10.2); NEUT % 48.2 % (42.8-82.8); PLATELET COUNT 251 10^3/uL (134-434); RBC 3.05 M/mm3 (3.60-5.2); RDW 17.1 % (11.6-15.6); WHITE BLOOD COUNT 5.3 K/mm3 (4.0-10.0)
[2022-01-30 12:24] LABS: CALCIUM 8.9 mg/dL (8.5-10.1)
[2022-01-30 12:28] LABS: CREATININE 1.5 mg/dL (0.55-1.3)
[2022-01-30 18:48] VITALS: BP 133/46; PULSE 73; TEMP 98.3
== END 2022-01-30 14:45 | disposition home or self-care (01) ==
LOC: J7W 10:44 → JCHEMO 10:44
PROVIDERS: ATTEND Internal Medicine Hematology & Oncology
DX: Z51.11 Encounter for antineoplastic chemotherapy (principal); C90.00 Multiple myeloma not having achieved remission
CPT/HCPCS: 36415; 80048; 85025; 96401; J9144

== ENCOUNTER 2022-02-06 10:30 | Day surgery (SDC) | payer BC, OTHER ==
[2022-02-06 11:23] LABS: BASO % 0.2 % (0-2.0); EOS % 1.5 % (0-4.5); HEMATOCRIT 30.7 % (32.4-45.2); HEMOGLOBIN 10.2 GM/dL (10.7-15.3); LYMPH % 29.8 % (8-40); MCHC 33.3 g/dl (32.0-36.0); MEAN CELL VOLUME 98.9 fl (80-96); MEAN PLT VOLUME 7.3 fl (7.5-11.1); MONO % 9.7 % (3.8-10.2); NEUT % 58.8 % (42.8-82.8); PLATELET COUNT 399 10^3/uL (134-434); RDW 17.4 % (11.6-15.6); WHITE BLOOD COUNT 7.3 K/mm3 (4.0-10.0)
[2022-02-06 11:46] LABS: BLOOD UREA NITROGEN 27.2 mg/dL (7-18); CALCIUM 8.9 mg/dL (8.5-10.1)
[2022-02-06 11:50] LABS: CREATININE 1.8 mg/dL (0.55-1.3)
[2022-02-06 11:51] LABS: BILIRUBIN,TOTAL 0.4 mg/dL (0.2-1); TOT PROT 7.2 g/dl (6.4-8.2)
[2022-02-06 11:54] LABS: ALBUMIN 2.8 g/dl (3.4-5.0)
[2022-02-06] MEDS ORDERED: ACETAMINOPHEN 325 MG TABLET (FP) ONE (12:01)
[2022-02-06 16:33] VITALS: BP 101/35; PULSE 67; TEMP 98.6
== END 2022-02-06 13:30 | disposition home or self-care (01) ==
LOC: JCHEMO 10:30 → J7W 10:39 → JCHEMO 13:30
PROVIDERS: ATTEND Internal Medicine Hematology & Oncology
DX: Z51.11 Encounter for antineoplastic chemotherapy (principal); C90.00 Multiple myeloma not having achieved remission
CPT/HCPCS: 36415; 80053; 85025; 96401; J9144

== ENCOUNTER 2022-02-13 11:03 | Day surgery (SDC) | payer BC, OTHER ==
[2022-02-13 12:04] VITALS: TEMP 98.1
[2022-02-13 12:14] LABS: HEMOGLOBIN 10.5 GM/dL (10.7-15.3); MCH 33.7 pg (25.7-33.7); MCHC 33.7 g/dl (32.0-36.0); MEAN CELL VOLUME 99.8 fl (80-96); MEAN PLT VOLUME 7.4 fl (7.5-11.1); PLATELET COUNT 245 10^3/uL (134-434); RDW 17.8 % (11.6-15.6); WHITE BLOOD COUNT 6.4 K/mm3 (4.0-10.0)
[2022-02-13 12:40] LABS: CALCIUM 8.6 mg/dL (8.5-10.1)
[2022-02-13 12:41] LABS: ALBUMIN 2.8 g/dl (3.4-5.0); BLOOD UREA NITROGEN 35.6 mg/dL (7-18)
[2022-02-13 12:43] LABS: BILIRUBIN,DIRECT 0.1 mg/dL (0.0-0.2); CREATININE 1.5 mg/dL (0.55-1.3)
[2022-02-13 12:45] LABS: BILIRUBIN,TOTAL 0.3 mg/dL (0.2-1)
[2022-02-13 13:02] LABS: ANISOCYTOSIS 1+; MACROCYTOSIS 0
[2022-02-13 15:53] VITALS: BP 100/46; PULSE 65
[2022-02-14 18:07] LABS: FREE KAPPA,SERUM 224.6 mg/L (3.3-19.4)
[2022-02-16 06:09] LABS: FREE KAP CHN UR 2.7 mg/L (1.17-86.46)
== END 2022-02-13 15:00 | disposition home or self-care (01) ==
LOC: JCHEMO 11:03
PROVIDERS: ATTEND Internal Medicine Hematology & Oncology
DX: Z51.11 Encounter for antineoplastic chemotherapy (principal); C90.00 Multiple myeloma not having achieved remission
CPT/HCPCS: 36415; 80048; 80076; 83883; 84155; 84165; 85027; 86677; 96401; J9144

== ENCOUNTER 2022-02-20 11:05 | Day surgery (SDC) | payer BC, OTHER ==
[2022-02-20 12:18] LABS: HEMATOCRIT 29.1 % (32.4-45.2); HEMOGLOBIN 9.8 GM/dL (10.7-15.3); MCH 34.1 pg (25.7-33.7); MCHC 33.6 g/dl (32.0-36.0); MEAN CELL VOLUME 101.5 fl (80-96); MEAN PLT VOLUME 7.7 fl (7.5-11.1); PLATELET COUNT 224 10^3/uL (134-434); RBC 2.87 M/mm3 (3.60-5.2); RDW 18.7 % (11.6-15.6); WHITE BLOOD COUNT 6.5 K/mm3 (4.0-10.0)
[2022-02-20 12:46] LABS: CALCIUM 8.2 mg/dL (8.5-10.1)
[2022-02-20 12:47] LABS: BLOOD UREA NITROGEN 21.6 mg/dL (7-18)
[2022-02-20 12:50] LABS: CREATININE 1.4 mg/dL (0.55-1.3)
[2022-02-20 13:09] LABS: ANISOCYTOSIS 1+; MACROCYTOSIS 1+
[2022-02-20 17:19] VITALS: BP 110/35; PULSE 64; TEMP 98.1
== END 2022-02-20 15:10 | disposition home or self-care (01) ==
LOC: JCHEMO 11:05 → J7W 11:07 → JCHEMO 15:10
PROVIDERS: ATTEND Internal Medicine Hematology & Oncology
DX: Z51.11 Encounter for antineoplastic chemotherapy (principal); C90.00 Multiple myeloma not having achieved remission
CPT/HCPCS: 36415; 80048; 85027; 96401; J9144

== ENCOUNTER 2022-02-27 11:18 | Day surgery (SDC) | payer BC, OTHER ==
[2022-02-27 12:29] VITALS: TEMP 98.7
[2022-02-27 12:53] LABS: BASO % 0.4 % (0-2.0); HEMATOCRIT 28.4 % (32.4-45.2); HEMOGLOBIN 9.6 GM/dL (10.7-15.3); LYMPH % 36.3 % (8-40); MCH 34.2 pg (25.7-33.7); MCHC 33.9 g/dl (32.0-36.0); MEAN CELL VOLUME 101.1 fl (80-96); MEAN PLT VOLUME 7.8 fl (7.5-11.1); MONO % 12.8 % (3.8-10.2); NEUT % 48.5 % (42.8-82.8); PLATELET COUNT 313 10^3/uL (134-434); RBC 2.81 M/mm3 (3.60-5.2)
[2022-02-27] MEDS ORDERED: DEXAMETHASONE 4 MG TABLET (FP) PO ONE (13:15)
[2022-02-27] MEDS ORDERED: ACETAMINOPHEN 325 MG TABLET (FP) PO ONE (13:15)
[2022-02-27] MEDS ORDERED: diphenhydrAMINE HCL 25 MG CAPSULE (FP) PO ONE (13:15)
[2022-02-27 13:41] LABS: ALBUMIN 2.8 g/dl (3.4-5.0); BLOOD UREA NITROGEN 20.9 mg/dL (7-18); CALCIUM 8.6 mg/dL (8.5-10.1)
[2022-02-27 13:44] LABS: CREATININE 1.2 mg/dL (0.55-1.3)
[2022-02-27] MEDS ORDERED: DARATUMUMAB-HYALURONIDASE-FIHJ (FASPRO) 15 ML VIAL SQ ONE (13:45)
[2022-02-27 13:46] LABS: BILIRUBIN,TOTAL 0.3 mg/dL (0.2-1); TOT PROT 6.6 g/dl (6.4-8.2)
[2022-02-27 16:05] VITALS: BP 118/59; PULSE 57
== END 2022-02-27 15:15 | disposition home or self-care (01) ==
LOC: JCHEMO 11:18 → J7W 11:19 → JCHEMO 15:15
PROVIDERS: ATTEND Internal Medicine Hematology & Oncology
DX: Z51.11 Encounter for antineoplastic chemotherapy (principal); C90.00 Multiple myeloma not having achieved remission
CPT/HCPCS: 36415; 80053; 85025; 96401; J9144

== ENCOUNTER 2022-03-06 10:35 | Day surgery (SDC) | payer BC, OTHER ==
[2022-03-06 11:42] LABS: BASO % 0.4 % (0-2.0); EOS % 1.5 % (0-4.5); HEMATOCRIT 30.7 % (32.4-45.2); HEMOGLOBIN 10.1 GM/dL (10.7-15.3); LYMPH % 33.3 % (8-40); MCH 34.2 pg (25.7-33.7); MEAN CELL VOLUME 103.8 fl (80-96); MEAN PLT VOLUME 7.6 fl (7.5-11.1); MONO % 9.6 % (3.8-10.2); NEUT % 55.2 % (42.8-82.8); PLATELET COUNT 297 10^3/uL (134-434); RBC 2.96 M/mm3 (3.60-5.2); RDW 19.4 % (11.6-15.6); WHITE BLOOD COUNT 7.2 K/mm3 (4.0-10.0)
[2022-03-06 11:56] VITALS: BP 131/49; PULSE 62; TEMP 98.4
[2022-03-06 12:02] LABS: BLOOD UREA NITROGEN 22.5 mg/dL (7-18); CALCIUM 9.2 mg/dL (8.5-10.1)
[2022-03-06 12:04] LABS: CREATININE 1.2 mg/dL (0.55-1.3)
[2022-03-06 12:06] LABS: BILIRUBIN,DIRECT 0.2 mg/dL (0.0-0.2); BILIRUBIN,TOTAL 0.4 mg/dL (0.2-1)
[2022-03-07 18:09] LABS: FREE KAPPA,SERUM 192.5 mg/L (3.3-19.4)
[2022-03-08 06:07] LABS: FREE KAP CHN UR 5.09 mg/L (1.17-86.46); KAPPA LAMBDA RATIO URIN 2.66 (1.83-14.26)
== END 2022-03-06 13:50 | disposition home or self-care (01) ==
LOC: JCHEMO 10:35 → J7W 10:37 → JCHEMO 13:50
PROVIDERS: ATTEND Internal Medicine Hematology & Oncology
DX: Z51.11 Encounter for antineoplastic chemotherapy (principal); C90.00 Multiple myeloma not having achieved remission
CPT/HCPCS: 36415; 80048; 80076; 82784; 83883; 84155; 84165; 85025; 96401; J9144

== ENCOUNTER 2022-03-13 11:35 | Day surgery (SDC) | payer BC, OTHER ==
[2022-03-13 13:20] LABS: HEMATOCRIT 29.8 % (32.4-45.2); HEMOGLOBIN 9.9 GM/dL (10.7-15.3); MCHC 33.3 g/dl (32.0-36.0); MEAN CELL VOLUME 105.2 fl (80-96); MEAN PLT VOLUME 7.8 fl (7.5-11.1); PLATELET COUNT 237 10^3/uL (134-434); RBC 2.83 M/mm3 (3.60-5.2); RDW 19.8 % (11.6-15.6); WHITE BLOOD COUNT 6.4 K/mm3 (4.0-10.0)
[2022-03-13 14:00] LABS: BLOOD UREA NITROGEN 27.8 mg/dL (7-18); CALCIUM 8.5 mg/dL (8.5-10.1)
[2022-03-13 14:01] LABS: ALBUMIN 2.8 g/dl (3.4-5.0)
[2022-03-13 14:03] LABS: BILIRUBIN,DIRECT 0.1 mg/dL (0.0-0.2); CREATININE 1.5 mg/dL (0.55-1.3)
[2022-03-13 14:05] LABS: TOT PROT 6.6 g/dl (6.4-8.2)
[2022-03-13 14:12] LABS: ANISOCYTOSIS 1+; BILIRUBIN,TOTAL 0.3 mg/dL (0.2-1); MACROCYTOSIS 1+
[2022-03-13 16:02] VITALS: PULSE 70; TEMP 98.8
[2022-03-13 16:12] VITALS: BP 112/48
[2022-03-15 18:07] LABS: FREE KAPPA,SERUM 188.1 mg/L (3.3-19.4)
[2022-03-16 06:07] LABS: FREE KAP CHN UR 5.17 mg/L (1.17-86.46); KAPPA LAMBDA RATIO URIN 2.66 (1.83-14.26)
== END 2022-03-13 15:15 | disposition home or self-care (01) ==
LOC: JONCCHEMO 11:35 → J7W 11:36 → JONCCHEMO 15:15
PROVIDERS: ATTEND Internal Medicine Hematology & Oncology
DX: Z51.11 Encounter for antineoplastic chemotherapy (principal); C90.00 Multiple myeloma not having achieved remission
CPT/HCPCS: 36415; 80048; 80076; 82784; 83883; 84155; 84165; 85025; 96401; J9144

== ENCOUNTER 2022-04-09 13:46 | Emergency (ER) | payer BC, OTHER ==
[2022-04-09 14:37] VITALS: BP 111/58; PULSE 78; RESP 17; TEMP 98.4; BMI 48.3
== END 2022-04-09 16:20 | disposition home or self-care (01) ==
LOC: JERFT 13:46
DX: L60.0 Ingrowing nail (principal)
CPT/HCPCS: 0241U-QW; 99283-25

== ENCOUNTER 2022-04-10 14:17 | Day surgery (SDC) | payer BC, OTHER ==
[~2022-04-10 14:17] MED LIST changes: -DARATUMUMAB-HYALURONIDASE-FIHJ (FASPRO) 15 ML VIAL SQ ONE; +diphenhydrAMINE HCL 50 MG CAPSULE PO ONE
[2022-04-10] MEDS ORDERED: DARATUMUMAB-HYALURONIDASE-FIHJ (FASPRO) 15 ML VIAL SQ ONE (14:30)
[2022-04-10 15:49] LABS: BASO % 0.4 % (0-2.0); EOS % 2.1 % (0-4.5); HEMOGLOBIN 9.4 GM/dL (10.7-15.3); MCH 35.6 pg (25.7-33.7); MCHC 33.5 g/dl (32.0-36.0); MEAN CELL VOLUME 106.2 fl (80-96); MEAN PLT VOLUME 7.9 fl (7.5-11.1); MONO % 12.1 % (3.8-10.2); NEUT % 43.4 % (42.8-82.8); PLATELET COUNT 235 10^3/uL (134-434); RBC 2.64 M/mm3 (3.60-5.2); RDW 16.9 % (11.6-15.6); WHITE BLOOD COUNT 6.8 K/mm3 (4.0-10.0)
[2022-04-10 16:09] LABS: ALBUMIN 2.9 g/dl (3.4-5.0); CALCIUM 8.9 mg/dL (8.5-10.1)
[2022-04-10 16:10] LABS: BLOOD UREA NITROGEN 32.5 mg/dL (7-18)
[2022-04-10 16:12] LABS: BILIRUBIN,DIRECT 0.1 mg/dL (0.0-0.2); CREATININE 1.6 mg/dL (0.55-1.3)
[2022-04-10 16:14] LABS: BILIRUBIN,TOTAL 0.5 mg/dL (0.2-1); TOT PROT 7.3 g/dl (6.4-8.2)
[2022-04-10 16:45] VITALS: BP 114/42; PULSE 80; RESP 18; TEMP 98.6
[2022-04-12 16:08] LABS: IGA IMMUNOGLOBULIN 10 mg/dL (64-422); IGG QN IMMUNOGLOBULIN 1979 mg/dL (586-1602); IGM QN SERUM <5 mg/dL (26-217)
[2022-04-13 16:08] LABS: FREE KAPPA,SERUM 250.6 mg/L (3.3-19.4)
== END 2022-04-10 16:30 | disposition home or self-care (01) ==
LOC: JONCCHEMO 14:17 → J7W 14:26 → JONCCHEMO 16:30
PROVIDERS: ATTEND Internal Medicine Hematology & Oncology
DX: Z51.11 Encounter for antineoplastic chemotherapy (principal); C90.00 Multiple myeloma not having achieved remission
CPT/HCPCS: 36415; 80048; 80076; 82784; 83883; 84155; 84165; 85025; 96401; J9144

== ENCOUNTER 2022-04-24 11:01 | Day surgery (SDC) | payer BC, OTHER ==
[~2022-04-24 11:01] MED LIST changes: +DARATUMUMAB-HYALURONIDASE-FIHJ (FASPRO) 15 ML VIAL SQ ONE; -diphenhydrAMINE HCL 50 MG CAPSULE PO ONE
[2022-04-24 11:47] VITALS: BP 102/32; PULSE 70; RESP 20; TEMP 98
[2022-04-24 11:47] LABS: BASO % 0.2 % (0-2.0); EOS % 0.9 % (0-4.5); HEMOGLOBIN 9.9 GM/dL (10.7-15.3); LYMPH % 43.8 % (8-40); MCH 36.1 pg (25.7-33.7); MCHC 33.1 g/dl (32.0-36.0); MEAN CELL VOLUME 109.1 fl (80-96); MEAN PLT VOLUME 7.5 fl (7.5-11.1); MONO % 15.1 % (3.8-10.2); PLATELET COUNT 306 10^3/uL (134-434); RBC 2.75 M/mm3 (3.60-5.2); RDW 17.1 % (11.6-15.6); WHITE BLOOD COUNT 7.6 K/mm3 (4.0-10.0)
[2022-04-24 12:48] LABS: ALBUMIN 2.9 g/dl (3.4-5.0); BILIRUBIN,DIRECT 0.1 mg/dL (0.0-0.2); BILIRUBIN,TOTAL 0.7 mg/dL (0.2-1); BLOOD UREA NITROGEN 17.6 mg/dL (7-18); CALCIUM 8.7 mg/dL (8.5-10.1); CREATININE 1.1 mg/dL (0.55-1.3); TOT PROT 7.2 g/dl (6.4-8.2)
[2022-04-25 14:07] LABS: IGA IMMUNOGLOBULIN 8 mg/dL (64-422); IGG QN IMMUNOGLOBULIN 2206 mg/dL (586-1602); IGM QN SERUM <5 mg/dL (26-217)
[2022-04-25 17:07] LABS: FREE KAPPA,SERUM 282.1 mg/L (3.3-19.4)
== END 2022-04-24 14:30 | disposition home or self-care (01) ==
LOC: JONCCHEMO 11:01 → J7W 11:02 → JONCCHEMO 14:30
PROVIDERS: ATTEND Internal Medicine Hematology & Oncology
DX: Z51.11 Encounter for antineoplastic chemotherapy (principal); C90.00 Multiple myeloma not having achieved remission
CPT/HCPCS: 36415; 80048; 80076; 82784; 83883; 84155; 84165; 85025; 96401; J9144

== ENCOUNTER 2022-05-08 11:07 | Day surgery (SDC) | payer BC, OTHER ==
[2022-05-08 11:53] VITALS: BP 135/48; PULSE 62; RESP 18; TEMP 97.9
[2022-05-08 12:13] LABS: BASO % 0.2 % (0-2.0); EOS % 1.6 % (0-4.5); MCH 35.3 pg (25.7-33.7); MCHC 32.2 g/dl (32.0-36.0); MEAN CELL VOLUME 109.6 fl (80-96); MEAN PLT VOLUME 7.9 fl (7.5-11.1); MONO % 13.1 % (3.8-10.2); NEUT % 42.1 % (42.8-82.8); PLATELET COUNT 292 10^3/uL (134-434); RBC 2.83 M/mm3 (3.60-5.2); RDW 15.9 % (11.6-15.6); WHITE BLOOD COUNT 6.7 K/mm3 (4.0-10.0)
[2022-05-08 12:37] LABS: BLOOD UREA NITROGEN 18.4 mg/dL (7-18); CALCIUM 8.9 mg/dL (8.5-10.1)
[2022-05-08 12:38] LABS: ALBUMIN 2.9 g/dl (3.4-5.0)
[2022-05-08 12:40] LABS: BILIRUBIN,DIRECT 0.1 mg/dL (0.0-0.2); CREATININE 1.3 mg/dL (0.55-1.3)
[2022-05-08 12:42] LABS: BILIRUBIN,TOTAL 0.3 mg/dL (0.2-1)
[2022-05-11 02:07] LABS: IGA IMMUNOGLOBULIN 7 mg/dL (64-422); IGG QN IMMUNOGLOBULIN 2199 mg/dL (586-1602); IGM QN SERUM <5 mg/dL (26-217)
[2022-05-11 18:07] LABS: FREE KAPPA,SERUM 289.3 mg/L (3.3-19.4)
== END 2022-05-08 14:00 | disposition home or self-care (01) ==
LOC: JONCCHEMO 11:07
PROVIDERS: ATTEND Internal Medicine Hematology & Oncology
DX: Z51.11 Encounter for antineoplastic chemotherapy (principal); C90.00 Multiple myeloma not having achieved remission
CPT/HCPCS: 36415; 80048; 80076; 82784; 83883; 84155; 84165; 85025; 96401; J9144

== ENCOUNTER 2022-05-22 11:16 | Day surgery (SDC) | payer BC, OTHER ==
[2022-05-22 12:20] LABS: BASO % 0.4 % (0-2.0); EOS % 1.7 % (0-4.5); HEMATOCRIT 32.6 % (32.4-45.2); HEMOGLOBIN 10.4 GM/dL (10.7-15.3); LYMPH % 38.4 % (8-40); MCH 35.1 pg (25.7-33.7); MEAN CELL VOLUME 109.9 fl (80-96); MEAN PLT VOLUME 8.6 fl (7.5-11.1); NEUT % 45.5 % (42.8-82.8); PLATELET COUNT 262 10^3/uL (134-434); RBC 2.97 M/mm3 (3.60-5.2); RDW 15.3 % (11.6-15.6); WHITE BLOOD COUNT 7.2 K/mm3 (4.0-10.0)
[2022-05-22 12:38] LABS: BLOOD UREA NITROGEN 20.8 mg/dL (7-18); CALCIUM 8.8 mg/dL (8.5-10.1)
[2022-05-22 12:41] LABS: CREATININE 1.6 mg/dL (0.55-1.3)
[2022-05-22 12:42] LABS: BILIRUBIN,DIRECT 0.1 mg/dL (0.0-0.2)
[2022-05-22 12:43] LABS: BILIRUBIN,TOTAL 0.3 mg/dL (0.2-1); TOT PROT 7.2 g/dl (6.4-8.2)
[2022-05-22 13:44] LABS: ANISOCYTOSIS 1+; MACROCYTOSIS 0
[2022-05-22 18:23] VITALS: BP 135/57; PULSE 77; RESP 22; TEMP 97.9
== END 2022-05-22 14:45 | disposition home or self-care (01) ==
LOC: JONCCHEMO 11:16 → J7W 11:17 → JONCCHEMO 14:45
PROVIDERS: ATTEND Internal Medicine Hematology & Oncology
DX: Z51.11 Encounter for antineoplastic chemotherapy (principal); C90.00 Multiple myeloma not having achieved remission
CPT/HCPCS: 36415; 80048; 80076; 85025; 96401; J9144

== ENCOUNTER 2022-06-05 11:42 | Day surgery (SDC) | payer BC, OTHER ==
[2022-06-05 12:33] LABS: BASO % 0.2 % (0-2.0); EOS % 1.4 % (0-4.5); HEMATOCRIT 32.7 % (32.4-45.2); HEMOGLOBIN 10.5 GM/dL (10.7-15.3); LYMPH % 45.4 % (8-40); MCH 34.9 pg (25.7-33.7); MCHC 32.2 g/dl (32.0-36.0); MEAN CELL VOLUME 108.5 fl (80-96); MONO % 13.7 % (3.8-10.2); NEUT % 39.3 % (42.8-82.8); PLATELET COUNT 341 10^3/uL (134-434); RBC 3.02 M/mm3 (3.60-5.2); WHITE BLOOD COUNT 7.4 K/mm3 (4.0-10.0)
[2022-06-05 12:52] LABS: CALCIUM 9.4 mg/dL (8.5-10.1)
[2022-06-05 12:54] LABS: BLOOD UREA NITROGEN 16.7 mg/dL (7-18)
[2022-06-05 12:56] LABS: BILIRUBIN,DIRECT 0.1 mg/dL (0.0-0.2)
[2022-06-05 12:57] LABS: CREATININE 1.3 mg/dL (0.55-1.3)
[2022-06-05 12:58] LABS: BILIRUBIN,TOTAL 0.3 mg/dL (0.2-1); TOT PROT 7.4 g/dl (6.4-8.2)
[2022-06-05 16:53] VITALS: BP 136/56; PULSE 71; RESP 20; TEMP 98.2
[2022-06-06 14:08] LABS: IGM QN SERUM <5 mg/dL (26-217)
[2022-06-06 17:07] LABS: FREE KAPPA,SERUM 374.7 mg/L (3.3-19.4)
== END 2022-06-05 14:20 | disposition home or self-care (01) ==
LOC: JONCCHEMO 11:42 → J7W 11:44 → JONCCHEMO 14:20
PROVIDERS: ATTEND Internal Medicine Hematology & Oncology
DX: Z51.11 Encounter for antineoplastic chemotherapy (principal); C90.00 Multiple myeloma not having achieved remission
CPT/HCPCS: 36415; 80048; 80076; 82784; 82787; 83883; 84155; 84165; 85025; 96401; J9144

== ENCOUNTER 2022-07-03 11:08 | Day surgery (SDC) | payer BC, OTHER ==
[2022-07-03 12:22] LABS: BASO % 0.2 % (0-2.0); EOS % 1.6 % (0-4.5); HEMATOCRIT 32.4 % (32.4-45.2); HEMOGLOBIN 10.5 GM/dL (10.7-15.3); LYMPH % 47.6 % (8-40); MCH 34.9 pg (25.7-33.7); MCHC 32.3 g/dl (32.0-36.0); MEAN CELL VOLUME 107.8 fl (80-96); MEAN PLT VOLUME 8.5 fl (7.5-11.1); NEUT % 39.6 % (42.8-82.8); PLATELET COUNT 313 10^3/uL (134-434); RBC 3.01 M/mm3 (3.60-5.2); RDW 14.9 % (11.6-15.6); WHITE BLOOD COUNT 6.1 K/mm3 (4.0-10.0)
[2022-07-03 12:45] LABS: BLOOD UREA NITROGEN 17.5 mg/dL (7-18)
[2022-07-03 12:48] LABS: BILIRUBIN,DIRECT 0.1 mg/dL (0.0-0.2); CREATININE 1.3 mg/dL (0.55-1.3)
[2022-07-03 12:50] LABS: BILIRUBIN,TOTAL 0.3 mg/dL (0.2-1); TOT PROT 7.8 g/dl (6.4-8.2)
[2022-07-03 13:36] LABS: ANISOCYTOSIS 2+; MACROCYTOSIS 2+
[2022-07-03 17:34] VITALS: BP 110/43; PULSE 62; RESP 20; TEMP 98.1
[2022-07-04 17:08] LABS: FREE KAPPA,SERUM 582.5 mg/L (3.3-19.4)
== END 2022-07-03 14:35 | disposition home or self-care (01) ==
LOC: JCHEMO 11:08 → J7W 11:11 → JCHEMO 14:35
PROVIDERS: ATTEND Internal Medicine Hematology & Oncology
DX: Z51.11 Encounter for antineoplastic chemotherapy (principal); C90.00 Multiple myeloma not having achieved remission
CPT/HCPCS: 36415; 80048; 80076; 82784; 83883; 84155; 84165; 85025; 96401; J9144

== ENCOUNTER 2022-07-31 10:51 | Day surgery (SDC) | payer BC, OTHER ==
[2022-07-31 12:24] LABS: BASO % 0.4 % (0-2.0); EOS % 1.2 % (0-4.5); HEMATOCRIT 31.8 % (32.4-45.2); HEMOGLOBIN 10.3 GM/dL (10.7-15.3); LYMPH % 50.9 % (8-40); MCH 34.7 pg (25.7-33.7); MCHC 32.5 g/dl (32.0-36.0); MEAN CELL VOLUME 106.8 fl (80-96); MEAN PLT VOLUME 8.4 fl (7.5-11.1); MONO % 10.2 % (3.8-10.2); NEUT % 37.3 % (42.8-82.8); PLATELET COUNT 287 10^3/uL (134-434); RBC 2.98 M/mm3 (3.60-5.2); RDW 15.4 % (11.6-15.6); WHITE BLOOD COUNT 5.7 K/mm3 (4.0-10.0)
[2022-07-31 12:44] LABS: BLOOD UREA NITROGEN 20.6 mg/dL (7-18); CALCIUM 9.4 mg/dL (8.5-10.1)
[2022-07-31 12:47] LABS: BILIRUBIN,DIRECT 0.1 mg/dL (0.0-0.2)
[2022-07-31 12:48] LABS: ANISOCYTOSIS 2+; CREATININE 1.1 mg/dL (0.55-1.3); MACROCYTOSIS 2+
[2022-07-31 12:50] LABS: BILIRUBIN,TOTAL 0.3 mg/dL (0.2-1); TOT PROT 8.2 g/dl (6.4-8.2)
[2022-07-31 15:40] VITALS: TEMP 97.8
[2022-07-31 15:56] VITALS: BP 143/60; PULSE 68; RESP 18
[2022-08-01 17:07] LABS: FREE KAPPA,SERUM 594.4 mg/L (3.3-19.4)
== END 2022-07-31 14:25 | disposition home or self-care (01) ==
LOC: JCHEMO 10:51 → J7W 10:54 → JCHEMO 14:25
PROVIDERS: ATTEND Internal Medicine Hematology & Oncology
DX: Z51.11 Encounter for antineoplastic chemotherapy (principal); C90.00 Multiple myeloma not having achieved remission
CPT/HCPCS: 36415; 80048; 80076; 82784; 82787; 83883; 84155; 84165; 85025; 96401; J9144

== ENCOUNTER 2022-11-13 11:55 | Day surgery (SDC) | payer BC, OTHER ==
[2022-11-13 12:48] LABS: HEMATOCRIT 26.3 % (32.4-45.2); HEMOGLOBIN 8.7 GM/dL (10.7-15.3); MCH 36.6 pg (25.7-33.7); MCHC 33.1 g/dl (32.0-36.0); MEAN CELL VOLUME 110.4 fl (80-96); MEAN PLT VOLUME 7.9 fl (7.5-11.1); PLATELET COUNT 203 10^3/uL (134-434); RBC 2.39 M/mm3 (3.60-5.2); RDW 16.1 % (11.6-15.6); WHITE BLOOD COUNT 6.1 K/mm3 (4.0-10.0)
[2022-11-13 13:09] LABS: ALBUMIN 3.1 g/dl (3.4-5.0); BLOOD UREA NITROGEN 44.3 mg/dL (7-18); CALCIUM 8.7 mg/dL (8.5-10.1)
[2022-11-13 13:12] LABS: BILIRUBIN,DIRECT 0.1 mg/dL (0.0-0.2); CREATININE 1.8 mg/dL (0.55-1.3)
[2022-11-13 13:13] LABS: ANISOCYTOSIS 2+; MACROCYTOSIS 3+
[2022-11-13 13:14] LABS: BILIRUBIN,TOTAL 0.3 mg/dL (0.2-1); TOT PROT 8.6 g/dl (6.4-8.2)
[2022-11-13 16:50] VITALS: BP 167/54; PULSE 66; RESP 18; TEMP 98.1
[2022-11-14 18:07] LABS: FREE KAPPA,SERUM 1155.6 mg/L (3.3-19.4)
== END 2022-11-13 15:35 | disposition home or self-care (01) ==
LOC: JONCCHEMO 11:55
PROVIDERS: ATTEND Internal Medicine Hematology & Oncology
DX: Z51.11 Encounter for antineoplastic chemotherapy (principal); C90.00 Multiple myeloma not having achieved remission
CPT/HCPCS: 36415; 80048; 80076; 82784; 83883; 84155; 84165; 85025; 96401; J9144

== ENCOUNTER 2022-12-11 12:24 | Day surgery (SDC) | payer BC, OTHER ==
[2022-12-11 11:40] LABS: BASO % 0.1 % (0-2.0); EOS % 4.2 % (0-4.5); HEMATOCRIT 27.7 % (32.4-45.2); HEMOGLOBIN 9.4 GM/dL (10.7-15.3); LYMPH % 57.3 % (8-40); MCH 37.2 pg (25.7-33.7); MCHC 33.9 g/dl (32.0-36.0); MEAN CELL VOLUME 109.7 fl (80-96); MEAN PLT VOLUME 7.7 fl (7.5-11.1); NEUT % 30.4 % (42.8-82.8); PLATELET COUNT 190 10^3/uL (134-434); RBC 2.53 M/mm3 (3.60-5.2); RDW 15.7 % (11.6-15.6); WHITE BLOOD COUNT 4.1 K/mm3 (4.0-10.0)
[2022-12-11 11:56] LABS: CHLORIDE 106 mmol/L (98-107); SODIUM 139 mmol/L (136-145)
[2022-12-11 11:58] LABS: CALCIUM 9.5 mg/dL (8.5-10.1)
[2022-12-11 11:59] LABS: ALBUMIN 3.8 g/dl (3.4-5.0); ANION GAP 2 MMOL/L (8-16); BLOOD UREA NITROGEN 23.4 mg/dL (7-18); CO2 31 mmol/L (21-32); GLUCOSE,RANDOM 243 mg/dL (74-106)
[2022-12-11 12:01] LABS: BILIRUBIN,DIRECT < 0.1 mg/dL (0.0-0.2)
[2022-12-11 12:02] LABS: SGOT/AST 10 U/L (15-37); SGPT/ALT 19 U/L (13-61)
[2022-12-11 12:03] LABS: TOT PROT 7.3 g/dl (6.4-8.2)
[2022-12-11 12:05] LABS: ALK PHOS 107 U/L (45-117)
[2022-12-11 12:08] LABS: BILIRUBIN,TOTAL 0.4 mg/dL (0.2-1)
[2022-12-11 12:09] LABS: ANISOCYTOSIS 0; HELMET CELLS 0; HOWELL-JOLLY BODIES 0; MACROCYTOSIS 0; OVALOCYTE 0; ROULEAU 0; SICKELED CELLS 0; TARGET CELLS 0; TEAR DROP CELLS 0; TOXIC GRANULATION 0
[2022-12-11 17:34] VITALS: BP 113/46; PULSE 47; RESP 20; TEMP 97.7
[2022-12-13 18:08] LABS: FREE KAPPA,SERUM 1139.4 mg/L (3.3-19.4)
== END 2022-12-11 14:40 | disposition home or self-care (01) ==
LOC: JONCCHEMO 12:24
PROVIDERS: ATTEND Internal Medicine Hematology & Oncology
DX: Z51.11 Encounter for antineoplastic chemotherapy (principal); C90.00 Multiple myeloma not having achieved remission
CPT/HCPCS: 36415; 80048; 80076; 82784; 83883; 84155; 84165; 85025; 96401; J9144

== ENCOUNTER 2023-01-08 10:07 | Day surgery (SDC) | payer BC, OTHER ==
[~2023-01-08 10:07] MED LIST changes: -DARATUMUMAB-HYALURONIDASE-FIHJ (FASPRO) 15 ML VIAL SQ ONE
[2023-01-08] MEDS ORDERED: DARATUMUMAB-HYALURONIDASE-FIHJ (FASPRO) 15 ML VIAL SQ ONE (10:30)
[2023-01-08 10:50] LABS: BASO % 0.4 % (0-2.0); EOS % 6.3 % (0-4.5); HEMATOCRIT 27.5 % (32.4-45.2); HEMOGLOBIN 9.4 GM/dL (10.7-15.3); LYMPH % 59.6 % (8-40); MCH 37.3 pg (25.7-33.7); MCHC 34.2 g/dl (32.0-36.0); MEAN PLT VOLUME 8.1 fl (7.5-11.1); MONO % 7.8 % (3.8-10.2); NEUT % 25.9 % (42.8-82.8); PLATELET COUNT 226 10^3/uL (134-434); RBC 2.52 M/mm3 (3.60-5.2); RDW 15.7 % (11.6-15.6); WHITE BLOOD COUNT 4.8 K/mm3 (4.0-10.0)
[2023-01-08 11:11] LABS: POTASSIUM 4.4 mmol/L (3.5-5.1)
[2023-01-08 11:13] LABS: CALCIUM 8.9 mg/dL (8.5-10.1)
[2023-01-08 11:14] LABS: ALBUMIN 3.1 g/dl (3.4-5.0); BLOOD UREA NITROGEN 28.5 mg/dL (7-18)
[2023-01-08 11:16] LABS: BILIRUBIN,DIRECT 0.1 mg/dL (0.0-0.2)
[2023-01-08 11:17] LABS: CREATININE 1.4 mg/dL (0.55-1.3)
[2023-01-08 11:18] LABS: TOT PROT 7.9 g/dl (6.4-8.2)
[2023-01-08 11:19] LABS: BILIRUBIN,TOTAL 0.3 mg/dL (0.2-1)
[2023-01-08 11:24] LABS: ANISOCYTOSIS 1+; MACROCYTOSIS 1+
[2023-01-08 16:52] VITALS: BP 138/51; PULSE 52; RESP 20; TEMP 98
[2023-01-10 17:07] LABS: FREE KAPPA,SERUM 822.4 mg/L (3.3-19.4)
== END 2023-01-08 14:30 | disposition home or self-care (01) ==
LOC: JONCCHEMO 10:07 → J7W 10:07 → JONCCHEMO 14:30
PROVIDERS: ATTEND Internal Medicine Hematology & Oncology
DX: Z51.11 Encounter for antineoplastic chemotherapy (principal); C90.00 Multiple myeloma not having achieved remission
CPT/HCPCS: 36415; 80048; 80076; 82784; 83883; 84155; 84165; 85025; 96401; J9144

== ENCOUNTER 2023-02-05 10:08 | Day surgery (SDC) | payer BC, OTHER ==
[2023-02-05] MEDS ORDERED: DARATUMUMAB-HYALURONIDASE-FIHJ (FASPRO) 15 ML VIAL SQ ONE (10:30)
[2023-02-05 11:51] LABS: BASO % 0.5 % (0-2.0); HEMATOCRIT 25.3 % (32.4-45.2); HEMOGLOBIN 8.5 GM/dL (10.7-15.3); LYMPH % 55.2 % (8-40); MCH 37.8 pg (25.7-33.7); MCHC 33.6 g/dl (32.0-36.0); MEAN CELL VOLUME 112.3 fl (80-96); MEAN PLT VOLUME 8.7 fl (7.5-11.1); MONO % 5.3 % (3.8-10.2); PLATELET COUNT 203 10^3/uL (134-434); RBC 2.25 M/mm3 (3.60-5.2); RDW 16.2 % (11.6-15.6); WHITE BLOOD COUNT 4.6 K/mm3 (4.0-10.0)
[2023-02-05 12:10] LABS: ANISOCYTOSIS 2+; MACROCYTOSIS 2+; POTASSIUM 4.7 mmol/L (3.5-5.1)
[2023-02-05 12:14] LABS: ALBUMIN 2.9 g/dl (3.4-5.0); BLOOD UREA NITROGEN 54.1 mg/dL (7-18)
[2023-02-05 12:16] LABS: BILIRUBIN,DIRECT 0.1 mg/dL (0.0-0.2)
[2023-02-05 12:17] LABS: CREATININE 2.2 mg/dL (0.55-1.3)
[2023-02-05 12:18] LABS: BILIRUBIN,TOTAL 0.3 mg/dL (0.2-1); TOT PROT 7.9 g/dl (6.4-8.2)
[2023-02-05 17:44] VITALS: BP 144/43; PULSE 54; RESP 20; TEMP 98
[2023-02-06 18:09] LABS: FREE KAPPA,SERUM 1045.1 mg/L (3.3-19.4)
== END 2023-02-05 15:00 | disposition home or self-care (01) ==
LOC: JONCCHEMO 10:08 → J7W 10:10 → JONCCHEMO 15:00
PROVIDERS: ATTEND Internal Medicine Hematology & Oncology
DX: Z51.11 Encounter for antineoplastic chemotherapy (principal); C90.00 Multiple myeloma not having achieved remission
CPT/HCPCS: 36415; 80048; 80076; 82784; 83883; 84155; 84165; 85025; 96401; J9144

== ENCOUNTER 2023-03-05 10:35 | Day surgery (SDC) | payer BC, OTHER ==
[~2023-03-05 10:35] MED LIST changes: +DARATUMUMAB-HYALURONIDASE-FIHJ (FASPRO) 15 ML VIAL SQ ONE
[2023-03-05 11:35] LABS: BASO % 0.3 % (0-2.0); EOS % 3.1 % (0-4.5); HEMATOCRIT 25.4 % (32.4-45.2); HEMOGLOBIN 8.3 GM/dL (10.7-15.3); LYMPH % 30.4 % (8-40); MCH 36.3 pg (25.7-33.7); MCHC 32.8 g/dl (32.0-36.0); MEAN CELL VOLUME 110.7 fl (80-96); MEAN PLT VOLUME 8.2 fl (7.5-11.1); MONO % 8.8 % (3.8-10.2); NEUT % 57.4 % (42.8-82.8); PLATELET COUNT 182 10^3/uL (134-434); RDW 16.4 % (11.6-15.6); WHITE BLOOD COUNT 4.9 K/mm3 (4.0-10.0)
[2023-03-05 11:53] LABS: POTASSIUM 3.6 mmol/L (3.5-5.1)
[2023-03-05 11:55] LABS: BLOOD UREA NITROGEN 23.4 mg/dL (7-18); CALCIUM 8.6 mg/dL (8.5-10.1)
[2023-03-05 11:56] LABS: ALBUMIN 2.8 g/dl (3.4-5.0)
[2023-03-05 11:58] LABS: CREATININE 1.5 mg/dL (0.55-1.3)
[2023-03-05 11:59] LABS: BILIRUBIN,DIRECT 0.1 mg/dL (0.0-0.2)
[2023-03-05 12:01] LABS: BILIRUBIN,TOTAL 0.3 mg/dL (0.2-1)
[2023-03-05 12:02] LABS: ANISOCYTOSIS 2+; MACROCYTOSIS 3+; OVALOCYTE 1+
[2023-03-05 15:35] VITALS: RESP 18; TEMP 98.8
[2023-03-05 15:58] VITALS: BP 154/53; PULSE 59
[2023-03-07 18:08] LABS: FREE KAPPA,SERUM 851.7 mg/L (3.3-19.4)
== END 2023-03-05 15:00 | disposition home or self-care (01) ==
LOC: J7W 10:35 → JONCCHEMO 10:35
PROVIDERS: ATTEND Internal Medicine Hematology & Oncology
DX: Z51.11 Encounter for antineoplastic chemotherapy (principal); C90.00 Multiple myeloma not having achieved remission
CPT/HCPCS: 36415; 80048; 80076; 82784; 83883; 84155; 84165; 85025; 96401; J9144

== ENCOUNTER 2023-04-02 09:58 | Day surgery (SDC) | payer BC, OTHER ==
[2023-04-02 10:26] LABS: HEMATOCRIT 26.2 % (32.4-45.2); HEMOGLOBIN 8.4 GM/dL (10.7-15.3); MEAN CELL VOLUME 112.4 fl (80-96); MEAN PLT VOLUME 8.8 fl (7.5-11.1); PLATELET COUNT 213 10^3/uL (134-434); RBC 2.33 M/mm3 (3.60-5.2); RDW 17.1 % (11.6-15.6); WHITE BLOOD COUNT 5.6 K/mm3 (4.0-10.0)
[2023-04-02] MEDS ORDERED: ACETAMINOPHEN 325 MG TABLET (FP) PO ONE (10:30)
[2023-04-02] MEDS ORDERED: diphenhydrAMINE HCL 25 MG CAPSULE (FP) PO ONE (10:30)
[2023-04-02] MEDS ORDERED: DEXAMETHASONE 4 MG TABLET (FP) PO ONE (10:30)
[2023-04-02 10:48] LABS: POTASSIUM 4.2 mmol/L (3.5-5.1)
[2023-04-02 10:49] LABS: CALCIUM 8.8 mg/dL (8.5-10.1)
[2023-04-02 10:50] LABS: ANISOCYTOSIS 3+; BLOOD UREA NITROGEN 30.2 mg/dL (7-18); MACROCYTOSIS 3+
[2023-04-02 10:53] LABS: CREATININE 1.8 mg/dL (0.55-1.3)
[2023-04-02] MEDS ORDERED: DARATUMUMAB-HYALURONIDASE-FIHJ (FASPRO) 15 ML VIAL SQ ONE (11:00)
[2023-04-02 14:14] VITALS: BP 153/51; PULSE 58; RESP 20; TEMP 97.3
[2023-04-03 17:11] LABS: FREE KAPPA,SERUM 1704.2 mg/L (3.3-19.4)
== END 2023-04-02 12:25 | disposition home or self-care (01) ==
LOC: J7W 09:58 → JONCCHEMO 09:58
PROVIDERS: ATTEND Internal Medicine Hematology & Oncology
DX: Z51.11 Encounter for antineoplastic chemotherapy (principal); C90.00 Multiple myeloma not having achieved remission
CPT/HCPCS: 36415; 80048; 82784; 83883; 84155; 84165; 85025; 96402; J9144

== ENCOUNTER 2023-04-30 09:52 | Day surgery (SDC) | payer BC, OTHER ==
[~2023-04-30 09:52] MED LIST changes: -DARATUMUMAB-HYALURONIDASE-FIHJ (FASPRO) 15 ML VIAL SQ ONE; -DEXAMETHASONE 4 MG TABLET (FP) PO ONE
[2023-04-30] MEDS ORDERED: DEXAMETHASONE 4 MG TABLET (FP) PO ONE (10:00)
[2023-04-30] MEDS ORDERED: DARATUMUMAB-HYALURONIDASE-FIHJ (FASPRO) 15 ML VIAL SQ ONE (10:00)
[2023-04-30 11:00] LABS: BASO % 0.4 % (0-2.0); EOS % 3.7 % (0-4.5); HEMATOCRIT 24.6 % (32.4-45.2); HEMOGLOBIN 8.3 GM/dL (10.7-15.3); LYMPH % 50.3 % (8-40); MCH 36.4 pg (25.7-33.7); MCHC 33.6 g/dl (32.0-36.0); MEAN CELL VOLUME 108.5 fl (80-96); MEAN PLT VOLUME 8.1 fl (7.5-11.1); MONO % 4.1 % (3.8-10.2); NEUT % 41.5 % (42.8-82.8); PLATELET COUNT 197 10^3/uL (134-434); RBC 2.27 M/mm3 (3.60-5.2); RDW 17.4 % (11.6-15.6); WHITE BLOOD COUNT 3.8 K/mm3 (4.0-10.0)
[2023-04-30 11:17] LABS: POTASSIUM 3.7 mmol/L (3.5-5.1)
[2023-04-30 11:19] LABS: ALBUMIN 2.8 g/dl (3.4-5.0); CALCIUM 9.1 mg/dL (8.5-10.1)
[2023-04-30 11:20] LABS: BLOOD UREA NITROGEN 22.3 mg/dL (7-18)
[2023-04-30 11:22] LABS: BILIRUBIN,DIRECT 0.1 mg/dL (0.0-0.2)
[2023-04-30 11:23] LABS: CREATININE 1.6 mg/dL (0.55-1.3)
[2023-04-30 11:24] LABS: BILIRUBIN,TOTAL 0.3 mg/dL (0.2-1); TOT PROT 8.8 g/dl (6.4-8.2)
[2023-04-30 12:17] LABS: ANISOCYTOSIS 2+; MACROCYTOSIS 2+
[2023-04-30 15:06] VITALS: BP 166/79; PULSE 70; RESP 22; TEMP 98.3
[2023-05-01 18:07] LABS: FREE KAPPA,SERUM 1967.4 mg/L (3.3-19.4)
== END 2023-04-30 15:00 | disposition home or self-care (01) ==
LOC: JONCCHEMO 09:52 → J7W 09:54 → JONCCHEMO 15:00
PROVIDERS: ATTEND Internal Medicine Hematology & Oncology
DX: Z51.11 Encounter for antineoplastic chemotherapy (principal); C90.00 Multiple myeloma not having achieved remission
CPT/HCPCS: 36415; 80048; 80076; 82784; 83883; 84155; 84165; 85025; 96401; J9144

== ENCOUNTER 2023-05-28 10:09 | Day surgery (SDC) | payer BC, OTHER ==
[~2023-05-28 10:09] MED LIST changes: +DEXAMETHASONE 4 MG TABLET (FP) PO ONE
[2023-05-28] MEDS ORDERED: DARATUMUMAB-HYALURONIDASE-FIHJ (FASPRO) 15 ML VIAL SQ ONE (10:30)
[2023-05-28 10:51] LABS: BASO % 0.5 % (0-2.0); EOS % 3.4 % (0-4.5); HEMATOCRIT 22.5 % (32.4-45.2); HEMOGLOBIN 7.4 GM/dL (10.7-15.3); LYMPH % 49.9 % (8-40); MCH 36.9 pg (25.7-33.7); MCHC 32.8 g/dl (32.0-36.0); MEAN CELL VOLUME 112.3 fl (80-96); MEAN PLT VOLUME 8.6 fl (7.5-11.1); MONO % 6.9 % (3.8-10.2); NEUT % 39.3 % (42.8-82.8); PLATELET COUNT 158 10^3/uL (134-434); RBC 2.01 M/mm3 (3.60-5.2); RDW 18.5 % (11.6-15.6); WHITE BLOOD COUNT 4.5 K/mm3 (4.0-10.0)
[2023-05-28 11:02] LABS: POTASSIUM 3.5 mmol/L (3.5-5.1)
[2023-05-28 11:04] LABS: CALCIUM 8.6 mg/dL (8.5-10.1)
[2023-05-28 11:05] LABS: ALBUMIN 2.7 g/dl (3.4-5.0); BLOOD UREA NITROGEN 16.7 mg/dL (7-18)
[2023-05-28 11:06] LABS: BILIRUBIN,DIRECT 0.2 mg/dL (0.0-0.2)
[2023-05-28 11:08] LABS: CREATININE 1.4 mg/dL (0.55-1.3); TOT PROT 8.9 g/dl (6.4-8.2)
[2023-05-28 11:10] LABS: BILIRUBIN,TOTAL 0.4 mg/dL (0.2-1)
[2023-05-28 11:49] LABS: ANISOCYTOSIS 0; MACROCYTOSIS 3+
[2023-05-28 18:05] VITALS: PULSE 63; RESP 18; TEMP 98.2
[2023-05-28 18:20] VITALS: BP 164/79
[2023-05-29 18:07] LABS: FREE KAPPA,SERUM 1444.6 mg/L (3.3-19.4)
== END 2023-05-28 18:45 | disposition home or self-care (01) ==
LOC: JONCCHEMO 10:09 → J7W 10:16 → JONCCHEMO 18:45
PROVIDERS: ATTEND Internal Medicine Hematology & Oncology
PROC: 3E01305 Introduction of Other Antineoplastic into Subcutaneous Tissue, Percutaneous Approach (ICD-10-PCS; principal; 2023-05-28)
PROC: 30233N1 Transfusion of Nonautologous Red Blood Cells into Peripheral Vein, Percutaneous Approach (ICD-10-PCS; 2023-05-28)
DX: Z51.11 Encounter for antineoplastic chemotherapy (principal); C90.00 Multiple myeloma not having achieved remission
CPT/HCPCS: 36415; 36430; 80048; 80076; 82784; 83883; 84155; 84165; 85025; 86850; 86900; 86901; 86922; 96401; J9144; P9058

== ENCOUNTER 2023-06-17 17:19 | Inpatient (IN) | payer BC, OTHER ==
[2023-06-17] MEDS ORDERED: morphine CARPU-JECT 2 MG/1 ML DISP.SYRIN IM ONE (18:43)
[2023-06-17 20:12] LABS: BASO % 0.3 % (0-2.0); EOS % 1.2 % (0-4.5); HEMATOCRIT 28.2 % (32.4-45.2); HEMOGLOBIN 9.5 GM/dL (10.7-15.3); LYMPH % 38.9 % (8-40); MCH 35.9 pg (25.7-33.7); MCHC 33.6 g/dl (32.0-36.0); MEAN CELL VOLUME 106.9 fl (80-96); MEAN PLT VOLUME 8.8 fl (7.5-11.1); MONO % 2.1 % (3.8-10.2); NEUT % 57.5 % (42.8-82.8); PLATELET COUNT 241 10^3/uL (134-434); RBC 2.64 M/mm3 (3.60-5.2); RDW 21.4 % (11.6-15.6)
[2023-06-17 20:27] LABS: POTASSIUM 4.7 mmol/L (3.5-5.1)
[2023-06-17 20:29] LABS: CALCIUM 8.9 mg/dL (8.5-10.1)
[2023-06-17 20:30] LABS: ALBUMIN 2.6 g/dl (3.4-5.0)
[2023-06-17 20:33] LABS: CREATININE 1.2 mg/dL (0.55-1.3)
[2023-06-17 20:34] LABS: BILIRUBIN,TOTAL 0.6 mg/dL (0.2-1)
[2023-06-17] MEDS ORDERED: morphine CARPU-JECT 2 MG/1 ML DISP.SYRIN IVPUSH ONE (20:51)
[2023-06-17 20:58] LABS: ERYTHROCYTE SEDIMENTATION RATE 111 mm/hr (0-30)
[2023-06-17 21:08] LABS: ANISOCYTOSIS 1+
[2023-06-17 21:09] LABS: MACROCYTOSIS 2+; PLATELET ESTIMATE NORMAL; ROULEAU 1+
[2023-06-18] MEDS ORDERED: traMADol HCL 50 MG TABLET PO PRN (02:00)
[2023-06-18] MEDS ORDERED: HYDROmorphone HCl 2 MG/ML VIAL IVPB ONE (04:15)
[2023-06-18] MEDS ORDERED: LEVOTHYROXINE NA 112 MCG TABLET (FP) PO SCH (07:00)
[2023-06-18 09:20] LABS: BASO % 0.3 % (0-2.0); EOS % 0.9 % (0-4.5); HEMATOCRIT 25.9 % (32.4-45.2); HEMOGLOBIN 8.7 GM/dL (10.7-15.3); LYMPH % 39.7 % (8-40); MCH 35.9 pg (25.7-33.7); MCHC 33.6 g/dl (32.0-36.0); MEAN CELL VOLUME 106.9 fl (80-96); MEAN PLT VOLUME 8.5 fl (7.5-11.1); MONO % 2.4 % (3.8-10.2); NEUT % 56.7 % (42.8-82.8); PLATELET COUNT 222 10^3/uL (134-434); RBC 2.42 M/mm3 (3.60-5.2); RDW 21.3 % (11.6-15.6); WHITE BLOOD COUNT 5.4 K/mm3 (4.0-10.0)
[2023-06-18 09:42] LABS: BLOOD UREA NITROGEN 14.6 mg/dL (7-18); CALCIUM 8.8 mg/dL (8.5-10.1); POTASSIUM 3.3 mmol/L (3.5-5.1)
[2023-06-18] MEDS ORDERED: LOSARTAN POTASSIUM 50 MG TABLET PO SCH ×2 (10:00→10:15)
[2023-06-18] MEDS ORDERED: POTASSIUM CHLORIDE ORAL LIQUID 20 MEQ/15 ML PO ONE (10:07)
[2023-06-18] MEDS: LEVOTHYROXINE 112 MCG, LEVOTHYROXINE 25 MCG PO SCH (10:30)
[2023-06-18] MEDS: SPIRONOLACTONE 25 MG TABLET PO SCH (10:31)
[2023-06-18] MEDS: AMIODARONE HCL 200 MG TABLET PO SCH (10:31)
[2023-06-18] MEDS: valACYclovir HCL 500 MG TABLET (FP) PO SCH (10:32)
[2023-06-18] MEDS: LIDOCAINE 4% PATCH TP SCH (10:38)
[2023-06-18] MEDS ORDERED: GABAPENTIN 100 MG CAPSULE PO SCH (14:00)
[2023-06-18] MEDS: BACLOFEN 10 MG TABLET (FP) PO SCH ×2 (14:26→21:44)
[2023-06-18] MEDS: GABAPENTIN 300 MG CAPSULE PO SCH ×2 (14:26→21:44)
[2023-06-18] MEDS: POMALYST 2 MG PO SCH (18:28)
[2023-06-18] MEDS: ATORVASTATIN CA 20 MG TABLET (FP) PO SCH (21:44)
[2023-06-18] MEDS: HEPARIN NA (PORCINE) 5,000 UNITS/ML 1ML VIAL SQ SCH (21:44)
[2023-06-18] MEDS: LIDOCAINE PATCH REMOVAL MC SCH (21:45)
[2023-06-18] MEDS ORDERED: ATORVASTATIN CA 20 MG TABLET (FP) PO SCH (22:00)
[2023-06-19] MEDS: BACLOFEN 10 MG TABLET (FP) PO SCH ×3 (06:14→21:15)
[2023-06-19] MEDS: LEVOTHYROXINE 112 MCG, LEVOTHYROXINE 25 MCG PO SCH (06:14)
[2023-06-19] MEDS: GABAPENTIN 300 MG CAPSULE PO SCH ×3 (06:14→21:15)
[2023-06-19] MEDS ORDERED: LEVOTHYROXINE 112 MCG, LEVOTHYROXINE 25 MCG PO SCH (07:00)
[2023-06-19] MEDS: POMALYST 2 MG PO SCH (09:46)
[2023-06-19] MEDS: ALLOPURINOL 300 MG TABLET (FP) PO SCH (09:47)
[2023-06-19] MEDS: HEPARIN NA (PORCINE) 5,000 UNITS/ML 1ML VIAL SQ SCH ×2 (09:47→21:16)
[2023-06-19] MEDS: AMIODARONE HCL 200 MG TABLET PO SCH (09:47)
[2023-06-19] MEDS: LOSARTAN POTASSIUM 50 MG TABLET PO SCH (09:48)
[2023-06-19] MEDS: FUROSEMIDE 40 MG TABLET (FP) PO SCH (09:48)
[2023-06-19] MEDS: LIDOCAINE 4% PATCH TP SCH (09:49)
[2023-06-19] MEDS: ASPIRIN COATED 81 MG TABLET.EC PO SCH (09:49)
[2023-06-19] MEDS: SPIRONOLACTONE 25 MG TABLET PO SCH (09:49)
[2023-06-19] MEDS: valACYclovir HCL 500 MG TABLET (FP) PO SCH (09:49)
[2023-06-19 09:58] LABS: BASO % 0.5 % (0-2.0); EOS % 0.9 % (0-4.5); HEMATOCRIT 25.5 % (32.4-45.2); HEMOGLOBIN 8.3 GM/dL (10.7-15.3); LYMPH % 47.5 % (8-40); MCHC 32.3 g/dl (32.0-36.0); MEAN CELL VOLUME 108.3 fl (80-96); MEAN PLT VOLUME 8.9 fl (7.5-11.1); MONO % 2.6 % (3.8-10.2); NEUT % 48.5 % (42.8-82.8); PLATELET COUNT 231 10^3/uL (134-434); RBC 2.36 M/mm3 (3.60-5.2); RDW 21.6 % (11.6-15.6); WHITE BLOOD COUNT 5.3 K/mm3 (4.0-10.0)
[2023-06-19 10:04] LABS: POTASSIUM 3.6 mmol/L (3.5-5.1)
[2023-06-19 10:13] LABS: CALCIUM 8.8 mg/dL (8.5-10.1)
[2023-06-19 10:14] LABS: ALBUMIN 2.3 g/dl (3.4-5.0)
[2023-06-19 10:17] LABS: CREATININE 1.1 mg/dL (0.55-1.3)
[2023-06-19 10:18] LABS: BILIRUBIN,TOTAL 1.2 mg/dL (0.2-1); TOT PROT 8.7 g/dl (6.4-8.2)
[2023-06-19] MEDS ORDERED: morphine SULFATE 4 MG/ML VIAL IVPUSH PRN (13:32)
[2023-06-19] MEDS: LIDOCAINE PATCH REMOVAL MC SCH (21:16)
[2023-06-19] MEDS: ATORVASTATIN CA 20 MG TABLET (FP) PO SCH (21:16)
[2023-06-20] MEDS: GABAPENTIN 300 MG CAPSULE PO SCH ×3 (06:09→21:06)
[2023-06-20] MEDS: BACLOFEN 10 MG TABLET (FP) PO SCH ×3 (06:09→21:06)
[2023-06-20] MEDS: LEVOTHYROXINE 112 MCG, LEVOTHYROXINE 25 MCG PO SCH (06:10)
[2023-06-20] MEDS: valACYclovir HCL 500 MG TABLET (FP) PO SCH (09:12)
[2023-06-20] MEDS: FUROSEMIDE 40 MG TABLET (FP) PO SCH (09:12)
[2023-06-20] MEDS: POMALYST 2 MG PO SCH (09:13)
[2023-06-20] MEDS: LIDOCAINE 4% PATCH TP SCH (09:13)
[2023-06-20] MEDS: AMIODARONE HCL 200 MG TABLET PO SCH (09:13)
[2023-06-20] MEDS: ASPIRIN COATED 81 MG TABLET.EC PO SCH (09:14)
[2023-06-20] MEDS: SPIRONOLACTONE 25 MG TABLET PO SCH (09:14)
[2023-06-20] MEDS: HEPARIN NA (PORCINE) 5,000 UNITS/ML 1ML VIAL SQ SCH ×2 (09:34→21:05)
[2023-06-20] MEDS: LOSARTAN POTASSIUM 50 MG TABLET PO SCH (09:49)
[2023-06-20] MEDS: ALLOPURINOL 300 MG TABLET (FP) PO SCH (09:50)
[2023-06-20] MEDS: oxyCODONE HCL 5 MG TABLET PO PRN (16:16)
[2023-06-20] MEDS: ATORVASTATIN CA 20 MG TABLET (FP) PO SCH (21:06)
[2023-06-20] MEDS: LIDOCAINE PATCH REMOVAL MC SCH (21:06)
[2023-06-21] MEDS: BACLOFEN 10 MG TABLET (FP) PO SCH ×3 (06:12→21:28)
[2023-06-21] MEDS: LEVOTHYROXINE 112 MCG, LEVOTHYROXINE 25 MCG PO SCH (06:12)
[2023-06-21] MEDS: GABAPENTIN 300 MG CAPSULE PO SCH ×3 (06:12→21:28)
[2023-06-21] MEDS: oxyCODONE HCL 5 MG TABLET PO PRN (08:38)
[2023-06-21] MEDS: SPIRONOLACTONE 25 MG TABLET PO SCH (10:32)
[2023-06-21] MEDS: FUROSEMIDE 40 MG TABLET (FP) PO SCH (10:32)
[2023-06-21] MEDS: AMIODARONE HCL 200 MG TABLET PO SCH (10:32)
[2023-06-21] MEDS: ASPIRIN COATED 81 MG TABLET.EC PO SCH (10:32)
[2023-06-21] MEDS: valACYclovir HCL 500 MG TABLET (FP) PO SCH (10:32)
[2023-06-21] MEDS: LOSARTAN POTASSIUM 50 MG TABLET PO SCH (10:33)
[2023-06-21] MEDS: LIDOCAINE 4% PATCH TP SCH (10:33)
[2023-06-21] MEDS: ALLOPURINOL 300 MG TABLET (FP) PO SCH (10:33)
[2023-06-21] MEDS: HEPARIN NA (PORCINE) 5,000 UNITS/ML 1ML VIAL SQ SCH ×2 (10:33→21:28)
[2023-06-21] MEDS: POMALYST 2 MG PO SCH (10:33)
[2023-06-21] MEDS: ATORVASTATIN CA 20 MG TABLET (FP) PO SCH (21:28)
[2023-06-21] MEDS: DOCUSATE SODIUM 100 MG CAPSULE (FP) PO SCH (21:28)
[2023-06-21] MEDS: morphine SO4 SUSTAINED ACTING 15 MG TABLET.SA PO SCH (21:29)
[2023-06-21] MEDS: LIDOCAINE PATCH REMOVAL MC SCH (21:29)
[2023-06-22] MEDS: LEVOTHYROXINE 112 MCG, LEVOTHYROXINE 25 MCG PO SCH (06:32)
[2023-06-22] MEDS: GABAPENTIN 300 MG CAPSULE PO SCH ×4 (06:33→23:30)
[2023-06-22] MEDS: BACLOFEN 10 MG TABLET (FP) PO SCH ×4 (06:33→23:30)
[2023-06-22 08:48] LABS: EPI CELLS 30 /uL (0-25.1); HYALINE CASTS 4 /uL (0-3.1); URINE APPEARANCE CLOUDY; URINE BACTERIA 3449 /uL (0-1359); URINE BILIRUBIN NEGATIVE (NEGATIVE); URINE COLOR YELLOW; URINE GLUCOSE (UA) NEGATIVE (NEGATIVE); URINE KETONE NEGATIVE (NEGATIVE); URINE LEUK ESTERASE 2+ (NEGATIVE); URINE NITRITE NEGATIVE (NEGATIVE); URINE PROTEIN 3+ (NEGATIVE); URINE WBC 510 /uL (0-25.8)
[2023-06-22 08:54] LABS: URINE RBC 38 /uL (0-23.9)
[2023-06-22] MEDS: ASPIRIN COATED 81 MG TABLET.EC PO SCH (10:01)
[2023-06-22] MEDS: morphine SO4 SUSTAINED ACTING 15 MG TABLET.SA PO SCH ×2 (10:01→21:21)
[2023-06-22] MEDS: HEPARIN NA (PORCINE) 5,000 UNITS/ML 1ML VIAL SQ SCH ×2 (10:01→21:22)
[2023-06-22] MEDS: LIDOCAINE 4% PATCH TP SCH (10:02)
[2023-06-22] MEDS: LOSARTAN POTASSIUM 50 MG TABLET PO SCH (10:02)
[2023-06-22] MEDS: POMALYST 2 MG PO SCH (10:03)
[2023-06-22] MEDS: SPIRONOLACTONE 25 MG TABLET PO SCH (10:03)
[2023-06-22] MEDS: valACYclovir HCL 500 MG TABLET (FP) PO SCH (10:03)
[2023-06-22] MEDS: ALLOPURINOL 300 MG TABLET (FP) PO SCH (10:03)
[2023-06-22] MEDS: FUROSEMIDE 40 MG TABLET (FP) PO SCH (10:03)
[2023-06-22] MEDS: AMIODARONE HCL 200 MG TABLET PO SCH (10:03)
[2023-06-22] MEDS: DOCUSATE SODIUM 100 MG CAPSULE (FP) PO SCH ×2 (21:21→23:30)
[2023-06-22] MEDS: ATORVASTATIN CA 20 MG TABLET (FP) PO SCH ×2 (21:21→23:30)
[2023-06-22] MEDS: LIDOCAINE PATCH REMOVAL MC SCH (21:22)
[2023-06-23] MEDS: LEVOTHYROXINE 112 MCG, LEVOTHYROXINE 25 MCG PO SCH (06:16)
[2023-06-23] MEDS: BACLOFEN 10 MG TABLET (FP) PO SCH (06:16)
[2023-06-23] MEDS: GABAPENTIN 300 MG CAPSULE PO SCH (06:16)
[2023-06-23 07:16] LABS: ARTERIAL BLD GAS O2 SATURATION 93.1 % (95-98); ARTERIAL BLOOD GAS BASE EXCESS 2.9 mmol/L (-2-2); ARTERIAL BLOOD GAS PO2 65.1 mmHg (80-100); ARTERIAL BLOOD GAS pH 7.421 (7.350-7.450)
[2023-06-23] MEDS ORDERED: NALOXONE HCL 0.4 MG/ML VIAL IVPUSH ONE ×2 (07:20→08:30)
[2023-06-23 07:25] LABS: ALLENS TEST POSITIVE
[2023-06-23] MEDS ORDERED: NALOXONE HCL 0.4 MG/ML VIAL ONE (07:57)
[2023-06-23 09:32] LABS: MCH 36.3 pg (25.7-33.7); MCHC 33.3 g/dl (32.0-36.0); MEAN PLT VOLUME 8.2 fl (7.5-11.1); PLATELET COUNT 247 10^3/uL (134-434); RBC 2.75 M/mm3 (3.60-5.2); RDW 21.3 % (11.6-15.6); WHITE BLOOD COUNT 8.6 K/mm3 (4.0-10.0)
[2023-06-23 10:02] LABS: POTASSIUM 4.2 mmol/L (3.5-5.1)
[2023-06-23 10:16] LABS: CALCIUM 9.3 mg/dL (8.5-10.1)
[2023-06-23 10:17] LABS: ALBUMIN 2.5 g/dl (3.4-5.0)
[2023-06-23 10:20] LABS: CREATININE 5.1 mg/dL (0.55-1.3)
[2023-06-23 10:21] LABS: TOT PROT 9.6 g/dl (6.4-8.2)
[2023-06-23 10:24] LABS: BILIRUBIN,TOTAL 0.5 mg/dL (0.2-1); BLOOD UREA NITROGEN 55.3 mg/dL (7-18)
[2023-06-23 10:59] LABS: ANISOCYTOSIS 2+; MACROCYTOSIS 2+
[2023-06-23] MEDS: LEVOTHYROXINE SODIUM 100 MCG 5 ML VIAL IVPUSH SCH (11:40)
[2023-06-23] MEDS: LIDOCAINE 4% PATCH TP SCH (11:43)
[2023-06-23] MEDS: HEPARIN NA (PORCINE) 5,000 UNITS/ML 1ML VIAL SQ SCH ×2 (11:44→21:17)
[2023-06-23 12:29] LABS: ARTERIAL BLD GAS O2 SATURATION 99.3 % (95-98); ARTERIAL BLOOD GAS BASE EXCESS 0.5 mmol/L (-2-2); ARTERIAL BLOOD GAS PO2 191.7 mmHg (80-100); ARTERIAL BLOOD GAS pH 7.422 (7.350-7.450)
[2023-06-23] MEDS ORDERED: CEFTRIAXONE 1 GM in DEXTROSE 5%-WATER - 50 ML IVPB SCH (12:45)
[2023-06-23] MEDS ORDERED: SODIUM CHLORIDE 1,000 ML IV SCH (12:45)
[2023-06-23 12:56] LABS: INR 1.18 (0.83-1.09); PROTHROMBIN TIME (PATIENT) 13.7 SEC (9.7-13.0)
[2023-06-23 13:31] LABS: EPI CELLS >36 /uL (0-25.1); HYALINE CASTS 4 /uL (0-3.1); PH,URINE 5.5 (5.0-8.0); URINE APPEARANCE TURBID; URINE BILIRUBIN NEGATIVE (NEGATIVE); URINE COLOR YELLOW; URINE GLUCOSE (UA) NEGATIVE (NEGATIVE); URINE KETONE NEGATIVE (NEGATIVE); URINE LEUK ESTERASE TRACE (NEGATIVE); URINE NITRITE NEGATIVE (NEGATIVE); URINE PROTEIN 2+ (NEGATIVE); URINE RBC 10 /uL (0-23.9); URINE UROBILINOGEN 0.2 mg/dL (0.2-1.0); URINE WBC 538 /uL (0-25.8)
[2023-06-23 14:12] LABS: URINE BACTERIA 127 /uL (0-1359)
[2023-06-23] MEDS ORDERED: AMIODARONE IN DEXTROSE,ISO-OSM 360 MG/200 ML BAG IV SCH (17:00)
[2023-06-23] MEDS ORDERED: RAPID SEQUENCE INTUBATION KIT NR ONE (19:05)
[2023-06-23] MEDS ORDERED: ROCURONIUM BROMIDE 50 MG/5 ML SYRINGE IVPUSH ONE (19:16)
[2023-06-23] MEDS ORDERED: MIDAZOLAM HCL 2 MG/2 ML SINGLE DOSE VIAL ONE (19:17)
[2023-06-23] MEDS ORDERED: MIDAZOLAM HCL 2 MG/2 ML SINGLE DOSE VIAL IVPUSH ONE (19:17)
[2023-06-23] MEDS ORDERED: NOREPINEPHRINE BITARTRATE 4 MG/4 ML ML IV ONE (19:17)
[2023-06-23] MEDS: NOREPINEPHRINE BITARTRATE/D5W 8 MG/250 ML BAG IVPB SCH (19:50)
[2023-06-23] MEDS ORDERED: DEXMEDETOMIDINE PREMIX 400 MCG/100 ML BAG IVPB ONE (20:10)
[2023-06-23] MEDS ORDERED: DEXMEDETOMIDINE PREMIX 400 MCG/100 ML BAG IVPB SCH (20:30)
[2023-06-23] MEDS: SPIRONOLACTONE 25 MG TABLET PO SCH (20:59)
[2023-06-23] MEDS: AMIODARONE HCL 200 MG TABLET PO SCH (20:59)
[2023-06-23] MEDS: ASPIRIN COATED 81 MG TABLET.EC PO SCH (20:59)
[2023-06-23] MEDS: LOSARTAN POTASSIUM 50 MG TABLET PO SCH (20:59)
[2023-06-23] MEDS: FUROSEMIDE 40 MG TABLET (FP) PO SCH (21:00)
[2023-06-23] MEDS: valACYclovir HCL 500 MG TABLET (FP) PO SCH (21:00)
[2023-06-23] MEDS: ALLOPURINOL 300 MG TABLET (FP) PO SCH (21:00)
[2023-06-23] MEDS: LIDOCAINE PATCH REMOVAL MC SCH (21:18)
[2023-06-23 21:29] LABS: ARTERIAL BLD GAS O2 SATURATION 99.6 % (95-98); ARTERIAL BLOOD GAS BASE EXCESS 1.4 mmol/L (-2-2); ARTERIAL BLOOD GAS PO2 229.3 mmHg (80-100)
[2023-06-23] MEDS: TRIPLE LUMEN FLUSH 4 ML ML IVPUSH SCH (21:47)
[2023-06-23] MEDS ORDERED: ACETAMINOPHEN INJECTION 100 ML IVPB ONE (22:09)
[2023-06-23] MEDS ORDERED: ACETAMINOPHEN 1000 MG/100 ML BAG IVPB ONE (22:09)
[2023-06-23] MEDS: POMALYST 2 MG PO SCH (22:48)
[2023-06-24] MEDS ORDERED: ACETAMINOPHEN 1000 MG/100 ML BAG IVPB ONE (05:06)
[2023-06-24 06:02] LABS: ARTERIAL BLD GAS O2 SATURATION 99.4 % (95-98); ARTERIAL BLOOD GAS BASE EXCESS 2.1 mmol/L (-2-2); ARTERIAL BLOOD GAS PO2 198.3 mmHg (80-100); ARTERIAL BLOOD GAS pH 7.454 (7.350-7.450)
[2023-06-24 06:09] LABS: VENT MODE A/C; VENT RATE 18
[2023-06-24 07:25] LABS: HEMATOCRIT 24.7 % (32.4-45.2); MCH 35.5 pg (25.7-33.7); MCHC 32.3 g/dl (32.0-36.0); MEAN CELL VOLUME 109.8 fl (80-96); MEAN PLT VOLUME 7.9 fl (7.5-11.1); PLATELET COUNT 198 10^3/uL (134-434); RBC 2.25 M/mm3 (3.60-5.2); RDW 21.3 % (11.6-15.6); WHITE BLOOD COUNT 6.3 K/mm3 (4.0-10.0)
[2023-06-24 07:55] LABS: POTASSIUM 4.2 mmol/L (3.5-5.1)
[2023-06-24 07:59] LABS: BLOOD UREA NITROGEN 68.3 mg/dL (7-18)
[2023-06-24] MEDS ORDERED: PIPERACILLIN/TAZOB 3.375 GM 3.375 GM in DEXTROSE 5%-WATER - 50 ML IVPB SCH ×2 (08:00→10:00)
[2023-06-24 08:01] LABS: CALCIUM 8.7 mg/dL (8.5-10.1)
[2023-06-24 08:02] LABS: CREATININE 7.3 mg/dL (0.55-1.3); MAGNESIUM 2.1 mg/dL (1.8-2.4); PHOSPHOROUS 7.1 mg/dL (2.5-4.9)
[2023-06-24] MEDS: LIDOCAINE 4% PATCH TP SCH (10:10)
[2023-06-24] MEDS: HEPARIN NA (PORCINE) 5,000 UNITS/ML 1ML VIAL SQ SCH ×2 (10:11→21:07)
[2023-06-24] MEDS: LEVOTHYROXINE SODIUM 100 MCG 5 ML VIAL IVPUSH SCH (10:16)
[2023-06-24] MEDS: TRIPLE LUMEN FLUSH 4 ML ML IVPUSH SCH ×2 (10:17→21:08)
[2023-06-24] MEDS: POMALYST 2 MG PO SCH (11:38)
[2023-06-24] MEDS: PANTOPRAZOLE SODIUM 40 MG VIAL IVPUSH SCH (14:45)
[2023-06-24] MEDS: PIPERACILLIN/TAZOB 2.25 GM 2.25 GM in DEXTROSE 5%-WATER - 50 ML IVPB SCH (17:42)
[2023-06-24] MEDS: AMIODARONE IN DEXTROSE,ISO-OSM 360 MG/200 ML BAG IV SCH (19:36)
[2023-06-24] MEDS ORDERED: levETIRAcetam 500 MG/5 ML INJECTION VIAL IVPB ONE ×2 (20:08→20:12)
[2023-06-24] MEDS: NOREPINEPHRINE BITARTRATE/D5W 8 MG/250 ML BAG IVPB SCH (20:16)
[2023-06-24] MEDS ORDERED: SODIUM CHLORIDE 1,000 ML IV SCH (21:00)
[2023-06-24] MEDS: LIDOCAINE PATCH REMOVAL MC SCH (21:07)
[2023-06-24 21:24] LABS: CHLORIDE 108 mmol/L (98-107); POTASSIUM 4.3 mmol/L (3.5-5.1); SODIUM 140 mmol/L (136-145)
[2023-06-24 21:25] LABS: ANION GAP 8 mmol/L (4-13); CO2 24 mmol/L (21-32)
[2023-06-24 21:26] LABS: BLOOD UREA NITROGEN 77.3 mg/dL (7-18); GLUCOSE,RANDOM 118 mg/dL (74-106)
[2023-06-24 21:28] LABS: PHOSPHOROUS 8.1 mg/dL (2.5-4.9)
[2023-06-24 21:44] LABS: CREATININE 9.2 mg/dL (0.55-1.3)
[2023-06-25] MEDS: PIPERACILLIN/TAZOB 2.25 GM 2.25 GM in DEXTROSE 5%-WATER - 50 ML IVPB SCH ×3 (01:36→17:49)
[2023-06-25 07:27] LABS: BASO % 0.1 % (0-2.0); EOS % 2.7 % (0-4.5); HEMOGLOBIN 7.4 GM/dL (10.7-15.3); LYMPH % 34.1 % (8-40); MCH 36.4 pg (25.7-33.7); MCHC 33.4 g/dl (32.0-36.0); MEAN CELL VOLUME 108.8 fl (80-96); MEAN PLT VOLUME 8.4 fl (7.5-11.1); MONO % 4.4 % (3.8-10.2); NEUT % 58.7 % (42.8-82.8); PLATELET COUNT 155 10^3/uL (134-434); RBC 2.02 M/mm3 (3.60-5.2); RDW 21.2 % (11.6-15.6); WHITE BLOOD COUNT 5.3 K/mm3 (4.0-10.0)
[2023-06-25 07:54] LABS: CHLORIDE 108 mmol/L (98-107); POTASSIUM 4.4 mmol/L (3.5-5.1); SODIUM 142 mmol/L (136-145)
[2023-06-25 08:02] LABS: BILIRUBIN,TOTAL 0.5 mg/dL (0.2-1); SGOT/AST 18 U/L (15-37); SGPT/ALT 13 U/L (13-61)
[2023-06-25 08:04] LABS: BLOOD UREA NITROGEN 83.5 mg/dL (7-18); GLUCOSE,RANDOM 106 mg/dL (74-106)
[2023-06-25 08:06] LABS: ANION GAP 8 mmol/L (4-13); CALCIUM 8.7 mg/dL (8.5-10.1); CO2 26 mmol/L (21-32)
[2023-06-25 08:07] LABS: ALK PHOS 104 U/L (45-117); MAGNESIUM 1.9 mg/dL (1.8-2.4); PHOSPHOROUS 8.3 mg/dL (2.5-4.9)
[2023-06-25] MEDS: levETIRAcetam 500 MG/5 ML INJECTION VIAL IVPB SCH ×2 (08:11→20:50)
[2023-06-25 08:23] LABS: ALBUMIN 1.8 g/dl (3.4-5.0); CREATININE 9.8 mg/dL (0.55-1.3)
[2023-06-25 09:20] LABS: ARTERIAL BLD GAS O2 SATURATION 98.4 % (95-98); ARTERIAL BLOOD GAS BASE EXCESS -2.2 mmol/L (-2-2); ARTERIAL BLOOD GAS pH 7.375 (7.350-7.450)
[2023-06-25 09:22] LABS: VENT MODE AC; VENT RATE 18
[2023-06-25] MEDS ORDERED: SODIUM CHLORIDE 250 ML IV PRN (09:38)
[2023-06-25] MEDS: HEPARIN NA (PORCINE) 5,000 UNITS/ML 1ML VIAL SQ SCH ×2 (10:01→22:39)
[2023-06-25] MEDS: LEVOTHYROXINE SODIUM 100 MCG 5 ML VIAL IVPUSH SCH (10:01)
[2023-06-25] MEDS: PANTOPRAZOLE SODIUM 40 MG VIAL IVPUSH SCH (10:01)
[2023-06-25] MEDS: LIDOCAINE 4% PATCH TP SCH (10:02)
[2023-06-25] MEDS: POMALYST 2 MG PO SCH (12:12)
[2023-06-25] MEDS: DEXMEDETOMIDINE PREMIX 400 MCG/100 ML BAG IVPB SCH (16:20)
[2023-06-25 21:56] LABS: EPI CELLS >36 /uL (0-25.1); HYALINE CASTS 23 /uL (0-3.1); PH,URINE 5.5 (5.0-8.0); URINE APPEARANCE TURBID; URINE BILIRUBIN NEGATIVE (NEGATIVE); URINE COLOR DK YELLOW; URINE GLUCOSE (UA) NEGATIVE (NEGATIVE); URINE KETONE NEGATIVE (NEGATIVE); URINE LEUK ESTERASE 1+ (NEGATIVE); URINE NITRITE NEGATIVE (NEGATIVE); URINE PROTEIN 4+ (NEGATIVE); URINE UROBILINOGEN 0.2 mg/dL (0.2-1.0); URINE WBC 4227 /uL (0-25.8)
[2023-06-25] MEDS: LIDOCAINE PATCH REMOVAL MC SCH (22:39)
[2023-06-25 22:44] LABS: YEAST NONE SEEN (NEGATIVE)
[2023-06-25 23:10] LABS: URINE CRYSTALS MANY /hpf
[2023-06-26] MEDS: PIPERACILLIN/TAZOB 2.25 GM 2.25 GM in DEXTROSE 5%-WATER - 50 ML IVPB SCH ×3 (01:15→18:27)
[2023-06-26] MEDS: levETIRAcetam 500 MG/5 ML INJECTION VIAL IVPB SCH ×2 (07:35→20:24)
[2023-06-26 08:15] LABS: BASO % 0.1 % (0-2.0); EOS % 3.4 % (0-4.5); HEMATOCRIT 22.4 % (32.4-45.2); HEMOGLOBIN 7.2 GM/dL (10.7-15.3); LYMPH % 36.3 % (8-40); MCH 35.4 pg (25.7-33.7); MEAN CELL VOLUME 110.5 fl (80-96); MEAN PLT VOLUME 8.6 fl (7.5-11.1); MONO % 4.5 % (3.8-10.2); NEUT % 55.7 % (42.8-82.8); PLATELET COUNT 141 10^3/uL (134-434); RBC 2.02 M/mm3 (3.60-5.2); RDW 21.4 % (11.6-15.6); WHITE BLOOD COUNT 6.4 K/mm3 (4.0-10.0)
[2023-06-26 08:56] LABS: CHLORIDE 106 mmol/L (98-107); POTASSIUM 4.6 mmol/L (3.5-5.1); SODIUM 140 mmol/L (136-145)
[2023-06-26 09:06] LABS: BLOOD UREA NITROGEN 70.1 mg/dL (7-18); CALCIUM 9.2 mg/dL (8.5-10.1)
[2023-06-26] MEDS ORDERED: SODIUM CHLORIDE 250 ML IV PRN (09:07)
[2023-06-26 09:08] LABS: ALBUMIN 1.8 g/dl (3.4-5.0); ANION GAP 6 mmol/L (4-13); CO2 28 mmol/L (21-32); GLUCOSE,RANDOM 100 mg/dL (74-106); MAGNESIUM 2.1 mg/dL (1.8-2.4)
[2023-06-26 09:11] LABS: BILIRUBIN,TOTAL 0.6 mg/dL (0.2-1); PHOSPHOROUS 7.2 mg/dL (2.5-4.9); SGOT/AST 21 U/L (15-37); SGPT/ALT 14 U/L (13-61); TOT PROT 8.2 g/dl (6.4-8.2)
[2023-06-26 09:13] LABS: ALK PHOS 114 U/L (45-117)
[2023-06-26 09:14] LABS: CREATININE 9.3 mg/dL (0.55-1.3)
[2023-06-26] MEDS: POMALYST 2 MG PO SCH (09:26)
[2023-06-26] MEDS: PANTOPRAZOLE SODIUM 40 MG VIAL IVPUSH SCH (09:36)
[2023-06-26] MEDS: LEVOTHYROXINE SODIUM 100 MCG 5 ML VIAL IVPUSH SCH (09:36)
[2023-06-26] MEDS: NOREPINEPHRINE BITARTRATE/D5W 8 MG/250 ML BAG IVPB SCH ×2 (09:37→19:42)
[2023-06-26] MEDS ORDERED: HEPARIN NA (PORCINE) 5,000 UNITS/ML 1ML VIAL SQ SCH (14:00)
[2023-06-26 14:24] VITALS: BMI 47.5
[2023-06-26 18:17] LABS: CHOLESTEROL 97 mg/dL (50-200); LDL CHOLESTEROL (ONLY SJRH) 54 mg/dL (5-100)
[2023-06-26 18:19] LABS: HDL CHOLESTEROL 34 mg/dL (40-60)
[2023-06-26] MEDS: DEXMEDETOMIDINE PREMIX 400 MCG/100 ML BAG IVPB SCH (18:27)
[2023-06-26 20:07] LABS: ANTIGLOMERULAR BASEMENT MEN.AB <0.2 units (0.0-0.9)
[2023-06-27] MEDS: PIPERACILLIN/TAZOB 2.25 GM 2.25 GM in DEXTROSE 5%-WATER - 50 ML IVPB SCH ×3 (01:43→17:01)
[2023-06-27] MEDS: VASOPRESSIN 40 UNITS/100 ML BAG IV SCH (06:43)
[2023-06-27 07:02] LABS: BASO % 0.4 % (0-2.0); EOS % 2.2 % (0-4.5); HEMOGLOBIN 7.5 GM/dL (10.7-15.3); LYMPH % 29.9 % (8-40); MCH 35.9 pg (25.7-33.7); MCHC 32.4 g/dl (32.0-36.0); MEAN CELL VOLUME 110.8 fl (80-96); MEAN PLT VOLUME 8.6 fl (7.5-11.1); MONO % 5.5 % (3.8-10.2); PLATELET COUNT 128 10^3/uL (134-434); RBC 2.08 M/mm3 (3.60-5.2); RDW 21.1 % (11.6-15.6); WHITE BLOOD COUNT 5.6 K/mm3 (4.0-10.0)
[2023-06-27 07:38] LABS: CHLORIDE 106 mmol/L (98-107); POTASSIUM 4.5 mmol/L (3.5-5.1); SODIUM 141 mmol/L (136-145)
[2023-06-27 07:41] LABS: CALCIUM 8.8 mg/dL (8.5-10.1)
[2023-06-27 07:43] LABS: ALBUMIN 1.7 g/dl (3.4-5.0); ANION GAP 8 mmol/L (4-13); BLOOD UREA NITROGEN 47.8 mg/dL (7-18); CO2 28 mmol/L (21-32); GLUCOSE,RANDOM 107 mg/dL (74-106); MAGNESIUM 2.1 mg/dL (1.8-2.4)
[2023-06-27 07:45] LABS: PHOSPHOROUS 6.2 mg/dL (2.5-4.9); SGOT/AST 29 U/L (15-37); SGPT/ALT 19 U/L (13-61)
[2023-06-27 07:46] LABS: BILIRUBIN,TOTAL 0.5 mg/dL (0.2-1); TOT PROT 8.5 g/dl (6.4-8.2)
[2023-06-27 07:51] LABS: ALK PHOS 145 U/L (45-117); CREATININE 7.7 mg/dL (0.55-1.3)
[2023-06-27 09:13] LABS: ANISOCYTOSIS 3+; MACROCYTOSIS 3+; OVALOCYTE 1+; TARGET CELLS 1+
[2023-06-27] MEDS: PANTOPRAZOLE SODIUM 40 MG VIAL IVPUSH SCH (09:26)
[2023-06-27] MEDS: levETIRAcetam 500 MG/5 ML INJECTION VIAL IVPB SCH ×2 (09:26→22:06)
[2023-06-27] MEDS: LEVOTHYROXINE SODIUM 100 MCG 5 ML VIAL IVPUSH SCH (09:27)
[2023-06-27] MEDS: POMALYST 2 MG PO SCH (09:27)
[2023-06-27] MEDS ORDERED: MIDAZOLAM HCL 5 MG/1 ML Single Dose Vial ONE (11:39)
[2023-06-27] MEDS ORDERED: PROPOFOL 20 ML ONE (11:39)
[2023-06-27] MEDS ORDERED: PROPOFOL 1,000,000 MCG/100 ML VIAL ONE (11:54)
[2023-06-27] MEDS ORDERED: MIDAZOLAM HCL 5 MG/1 ML Single Dose Vial IVPUSH ONE (12:08)
[2023-06-27] MEDS ORDERED: PROPOFOL 200 MG/20 ML VIAL IVPUSH ONE ×2 (12:08→12:10)
[2023-06-27] MEDS: PROPOFOL 1,000,000 MCG/100 ML VIAL IVPB SCH (12:18)
[2023-06-27] MEDS ORDERED: DEXAMETHASONE SOD PHOSPHATE 10 MG/1 ML VIAL IVPUSH ONE (13:15)
[2023-06-27] MEDS ORDERED: SODIUM CHLORIDE 250 ML IV PRN (13:22)
[2023-06-27 15:08] LABS: ATYPICAL pANCA <1:20 titer (Neg:<1:20); C-ANCA <1:20 titer (Neg:<1:20)
[2023-06-27 15:45] LABS: ARTERIAL BLD GAS O2 SATURATION 99.6 % (95-98); ARTERIAL BLOOD GAS BASE EXCESS 2.3 mmol/L (-2-2); ARTERIAL BLOOD GAS PO2 272.3 mmHg (80-100); ARTERIAL BLOOD GAS pH 7.388 (7.350-7.450)
[2023-06-27 15:54] LABS: ALLENS TEST POSITIVE
[2023-06-27 15:55] LABS: VENT MODE A/C; VENT RATE 15
[2023-06-27 18:44] LABS: ARTERIAL BLD GAS O2 SATURATION 98.3 % (95-98); ARTERIAL BLOOD GAS BASE EXCESS 2.1 mmol/L (-2-2); ARTERIAL BLOOD GAS pH 7.373 (7.350-7.450)
[2023-06-27 18:45] LABS: ALLENS TEST POSITIVE; VENT MODE A/C; VENT RATE 14
[2023-06-27 19:38] LABS: HEMATOCRIT 21.2 % (32.4-45.2); MCH 35.7 pg (25.7-33.7); MCHC 32.7 g/dl (32.0-36.0); MEAN CELL VOLUME 109.2 fl (80-96); MEAN PLT VOLUME 8.7 fl (7.5-11.1); PLATELET COUNT 108 10^3/uL (134-434); RBC 1.94 M/mm3 (3.60-5.2); RDW 21.1 % (11.6-15.6); WHITE BLOOD COUNT 4.9 K/mm3 (4.0-10.0)
[2023-06-27 19:41] LABS: HEMOGLOBIN 6.9 GM/dL (10.7-15.3)
[2023-06-27] MEDS: NOREPINEPHRINE BITARTRATE/D5W 8 MG/250 ML BAG IVPB SCH (22:07)
[2023-06-28] MEDS: PIPERACILLIN/TAZOB 2.25 GM 2.25 GM in DEXTROSE 5%-WATER - 50 ML IVPB SCH ×3 (01:07→17:25)
[2023-06-28] MEDS: PROPOFOL 1,000,000 MCG/100 ML VIAL IVPB SCH ×5 (01:11→21:31)
[2023-06-28] MEDS: VASOPRESSIN 40 UNITS/100 ML BAG IV SCH (07:00)
[2023-06-28 08:14] LABS: BASO % 0.3 % (0-2.0); EOS % 0.9 % (0-4.5); HEMATOCRIT 23.4 % (32.4-45.2); HEMOGLOBIN 7.6 GM/dL (10.7-15.3); MCH 33.8 pg (25.7-33.7); MCHC 32.6 g/dl (32.0-36.0); MEAN CELL VOLUME 103.6 fl (80-96); MEAN PLT VOLUME 8.8 fl (7.5-11.1); MONO % 6.1 % (3.8-10.2); NEUT % 68.7 % (42.8-82.8); PLATELET COUNT 100 10^3/uL (134-434); RBC 2.25 M/mm3 (3.60-5.2); RDW 27.1 % (11.6-15.6); WHITE BLOOD COUNT 5.4 K/mm3 (4.0-10.0)
[2023-06-28 08:31] LABS: CHLORIDE 105 mmol/L (98-107); POTASSIUM 5.1 mmol/L (3.5-5.1); SODIUM 140 mmol/L (136-145)
[2023-06-28 08:37] LABS: ALBUMIN 1.7 g/dl (3.4-5.0); ANION GAP 10 mmol/L (4-13); BLOOD UREA NITROGEN 65.8 mg/dL (7-18); CO2 25 mmol/L (21-32); GLUCOSE,RANDOM 132 mg/dL (74-106); MAGNESIUM 2.6 mg/dL (1.8-2.4)
[2023-06-28 08:40] LABS: PHOSPHOROUS 8.4 mg/dL (2.5-4.9); SGOT/AST 26 U/L (15-37); SGPT/ALT 20 U/L (13-61)
[2023-06-28 08:43] LABS: ALK PHOS 141 U/L (45-117); BILIRUBIN,TOTAL 0.6 mg/dL (0.2-1); TOT PROT 8.7 g/dl (6.4-8.2)
[2023-06-28 08:45] LABS: CREATININE 10.1 mg/dL (0.55-1.3)
[2023-06-28] MEDS: levETIRAcetam 500 MG/5 ML INJECTION VIAL IVPB SCH ×2 (09:00→19:52)
[2023-06-28] MEDS: PANTOPRAZOLE SODIUM 40 MG VIAL IVPUSH SCH (09:22)
[2023-06-28] MEDS: LEVOTHYROXINE SODIUM 100 MCG 5 ML VIAL IVPUSH SCH (10:23)
[2023-06-28] MEDS: POMALYST 2 MG PO SCH (10:24)
[2023-06-28] MEDS: DEXAMETHASONE SOD PHOSPHATE 10 MG/1 ML VIAL IVPUSH SCH (17:25)
[2023-06-28] MEDS: NOREPINEPHRINE BITARTRATE/D5W 8 MG/250 ML BAG IVPB SCH (20:04)
[2023-06-29] MEDS: PIPERACILLIN/TAZOB 2.25 GM 2.25 GM in DEXTROSE 5%-WATER - 50 ML IVPB SCH ×3 (01:00→17:20)
[2023-06-29] MEDS: DEXAMETHASONE SOD PHOSPHATE 10 MG/1 ML VIAL IVPUSH SCH ×3 (01:00→17:20)
[2023-06-29] MEDS: VASOPRESSIN 40 UNITS/100 ML BAG IV SCH (06:42)
[2023-06-29 07:43] LABS: HEMATOCRIT 23.1 % (32.4-45.2); HEMOGLOBIN 7.6 GM/dL (10.7-15.3); MCH 33.9 pg (25.7-33.7); MEAN CELL VOLUME 102.8 fl (80-96); MEAN PLT VOLUME 8.9 fl (7.5-11.1); PLATELET COUNT 103 10^3/uL (134-434); RBC 2.25 M/mm3 (3.60-5.2); RDW 26.5 % (11.6-15.6); WHITE BLOOD COUNT 4.1 K/mm3 (4.0-10.0)
[2023-06-29 08:20] LABS: POTASSIUM 4.1 mmol/L (3.5-5.1)
[2023-06-29 08:22] LABS: ALBUMIN 1.8 g/dl (3.4-5.0); CALCIUM 8.6 mg/dL (8.5-10.1); MAGNESIUM 2.2 mg/dL (1.8-2.4)
[2023-06-29 08:24] LABS: PHOSPHOROUS 6.6 mg/dL (2.5-4.9)
[2023-06-29 08:25] LABS: CREATININE 6.4 mg/dL (0.55-1.3)
[2023-06-29 08:26] LABS: BILIRUBIN,TOTAL 0.4 mg/dL (0.2-1); TOT PROT 8.9 g/dl (6.4-8.2)
[2023-06-29] MEDS: levETIRAcetam 500 MG/5 ML INJECTION VIAL IVPB SCH ×2 (09:00→20:59)
[2023-06-29 09:18] LABS: ANISOCYTOSIS 3+; MACROCYTOSIS 2+; OVALOCYTE 1+; TARGET CELLS 1+
[2023-06-29] MEDS: PANTOPRAZOLE SODIUM 40 MG VIAL IVPUSH SCH (09:19)
[2023-06-29] MEDS: PROPOFOL 1,000,000 MCG/100 ML VIAL IVPB SCH ×3 (09:19→20:59)
[2023-06-29] MEDS: POMALYST 2 MG PO SCH (09:30)
[2023-06-29] MEDS: LEVOTHYROXINE SODIUM 100 MCG 5 ML VIAL IVPUSH SCH (09:31)
[2023-06-29] MEDS: morphine SULFATE 4 MG/ML VIAL IVPUSH PRN (18:53)
[2023-06-29] MEDS: NOREPINEPHRINE BITARTRATE/D5W 8 MG/250 ML BAG IVPB SCH (20:59)
[2023-06-30] MEDS: PROPOFOL 1,000,000 MCG/100 ML VIAL IVPB SCH ×5 (01:08→20:01)
[2023-06-30] MEDS: DEXAMETHASONE SOD PHOSPHATE 10 MG/1 ML VIAL IVPUSH SCH ×3 (01:08→17:34)
[2023-06-30] MEDS: PIPERACILLIN/TAZOB 2.25 GM 2.25 GM in DEXTROSE 5%-WATER - 50 ML IVPB SCH ×3 (01:08→17:34)
[2023-06-30] MEDS: morphine SULFATE 4 MG/ML VIAL IVPUSH PRN ×3 (01:18→10:06)
[2023-06-30] MEDS: VASOPRESSIN 40 UNITS/100 ML BAG IV SCH (06:15)
[2023-06-30 08:25] LABS: CHLORIDE 98 mmol/L (98-107); POTASSIUM 4.1 mmol/L (3.5-5.1); SODIUM 135 mmol/L (136-145)
[2023-06-30 08:33] LABS: CALCIUM 8.5 mg/dL (8.5-10.1)
[2023-06-30 08:34] LABS: ALBUMIN 1.7 g/dl (3.4-5.0); ANION GAP 13 mmol/L (4-13); CO2 23 mmol/L (21-32); GLUCOSE,RANDOM 122 mg/dL (74-106); MAGNESIUM 2.5 mg/dL (1.8-2.4)
[2023-06-30 08:38] LABS: BILIRUBIN,TOTAL 0.7 mg/dL (0.2-1); SGOT/AST 28 U/L (15-37); SGPT/ALT 36 U/L (13-61); TOT PROT 8.2 g/dl (6.4-8.2)
[2023-06-30] MEDS: levETIRAcetam 500 MG/5 ML INJECTION VIAL IVPB SCH ×2 (08:40→19:35)
[2023-06-30 08:51] LABS: HEMATOCRIT 21.1 % (32.4-45.2); HEMOGLOBIN 7.1 GM/dL (10.7-15.3); MCHC 33.6 g/dl (32.0-36.0); MEAN CELL VOLUME 101.3 fl (80-96); MEAN PLT VOLUME 9.3 fl (7.5-11.1); PLATELET COUNT 85 10^3/uL (134-434); RBC 2.08 M/mm3 (3.60-5.2); RDW 25.5 % (11.6-15.6); WHITE BLOOD COUNT 2.3 K/mm3 (4.0-10.0)
[2023-06-30] MEDS: POMALYST 2 MG PO SCH (09:18)
[2023-06-30] MEDS: PANTOPRAZOLE SODIUM 40 MG VIAL IVPUSH SCH (09:18)
[2023-06-30] MEDS: LEVOTHYROXINE SODIUM 100 MCG 5 ML VIAL IVPUSH SCH (09:19)
[2023-06-30 10:05] LABS: ALK PHOS 111 U/L (45-117); BLOOD UREA NITROGEN 78.2 mg/dL (7-18); CREATININE 8.2 mg/dL (0.55-1.3); PHOSPHOROUS 8.7 mg/dL (2.5-4.9)
[2023-06-30 10:45] LABS: ANISOCYTOSIS 3+; MACROCYTOSIS 2+
[2023-06-30] MEDS ORDERED: SODIUM CHLORIDE 250 ML IV PRN (14:08)
[2023-07-01] MEDS: DEXAMETHASONE SOD PHOSPHATE 10 MG/1 ML VIAL IVPUSH SCH ×3 (01:12→18:50)
[2023-07-01] MEDS: PIPERACILLIN/TAZOB 2.25 GM 2.25 GM in DEXTROSE 5%-WATER - 50 ML IVPB SCH ×2 (01:12→11:14)
[2023-07-01] MEDS: VASOPRESSIN 40 UNITS/100 ML BAG IV SCH (06:00)
[2023-07-01 06:26] LABS: ARTERIAL BLD GAS O2 SATURATION 98.6 % (95-98); ARTERIAL BLOOD GAS BASE EXCESS -6.5 mmol/L (-2-2); ARTERIAL BLOOD GAS PO2 149.8 mmHg (80-100)
[2023-07-01 06:30] LABS: VENT MODE A/C; VENT RATE 14
[2023-07-01 07:15] LABS: MCH 33.8 pg (25.7-33.7); MCHC 32.6 g/dl (32.0-36.0); MEAN CELL VOLUME 103.8 fl (80-96); MEAN PLT VOLUME 9.3 fl (7.5-11.1); PLATELET COUNT 95 10^3/uL (134-434); RBC 2.02 M/mm3 (3.60-5.2); RDW 24.9 % (11.6-15.6)
[2023-07-01 07:17] LABS: WHITE BLOOD COUNT 2.1 K/mm3 (4.0-10.0)
[2023-07-01 07:29] LABS: HEMOGLOBIN 6.8 GM/dL (10.7-15.3)
[2023-07-01 07:32] LABS: CHLORIDE 97 mmol/L (98-107); POTASSIUM 4.4 mmol/L (3.5-5.1); SODIUM 134 mmol/L (136-145)
[2023-07-01 07:35] LABS: ANION GAP 15 mmol/L (4-13); CALCIUM 8.2 mg/dL (8.5-10.1); CO2 23 mmol/L (21-32); GLUCOSE,RANDOM 125 mg/dL (74-106); MAGNESIUM 2.5 mg/dL (1.8-2.4)
[2023-07-01 09:00] LABS: CREATININE 10.1 mg/dL (0.55-1.3); PHOSPHOROUS 10.9 mg/dL (2.5-4.9)
[2023-07-01] MEDS: POMALYST 2 MG PO SCH (10:21)
[2023-07-01] MEDS: PROPOFOL 1,000,000 MCG/100 ML VIAL IVPB SCH ×2 (10:23→14:10)
[2023-07-01] MEDS: LEVOTHYROXINE SODIUM 100 MCG 5 ML VIAL IVPUSH SCH (11:13)
[2023-07-01] MEDS: PANTOPRAZOLE SODIUM 40 MG VIAL IVPUSH SCH (11:13)
[2023-07-01] MEDS: levETIRAcetam 500 MG/5 ML INJECTION VIAL IVPB SCH ×2 (11:14→20:44)
[2023-07-01] MEDS: FENTANYL NS IVPB 500 MCG/100 ML BAG IVPB SCH (13:45)
[2023-07-01] MEDS: ARTIFICIAL TEARS (POLYVINYL ALCOHOL) OPTH DROPS OU SCH ×2 (14:10→21:04)
[2023-07-01 17:48] LABS: HEMATOCRIT 26.3 % (32.4-45.2); HEMOGLOBIN 8.6 GM/dL (10.7-15.3); MCHC 32.9 g/dl (32.0-36.0); MEAN CELL VOLUME 100.3 fl (80-96); MEAN PLT VOLUME 9.5 fl (7.5-11.1); PLATELET COUNT 93 10^3/uL (134-434); RBC 2.62 M/mm3 (3.60-5.2)
[2023-07-01 17:52] LABS: WHITE BLOOD COUNT 2.2 K/mm3 (4.0-10.0)
[2023-07-01 18:39] LABS: ANISOCYTOSIS 2+; MACROCYTOSIS 1+; OVALOCYTE 1+; PLATELET ESTIMATE DECREASED; TEAR DROP CELLS 1+
[2023-07-01] MEDS: NOREPINEPHRINE BITARTRATE/D5W 8 MG/250 ML BAG IVPB SCH (20:08)
[2023-07-02] MEDS: PROPOFOL 1,000,000 MCG/100 ML VIAL IVPB SCH ×3 (02:03→15:27)
[2023-07-02] MEDS: DEXAMETHASONE SOD PHOSPHATE 10 MG/1 ML VIAL IVPUSH SCH ×3 (02:03→17:32)
[2023-07-02] MEDS: ARTIFICIAL TEARS (POLYVINYL ALCOHOL) OPTH DROPS OU SCH ×3 (05:51→21:03)
[2023-07-02 06:17] LABS: HEMOGLOBIN 8.3 GM/dL (10.7-15.3); MCH 33.3 pg (25.7-33.7); MCHC 33.3 g/dl (32.0-36.0); MEAN CELL VOLUME 99.9 fl (80-96); MEAN PLT VOLUME 9.8 fl (7.5-11.1); PLATELET COUNT 98 10^3/uL (134-434); RDW 24.3 % (11.6-15.6); WHITE BLOOD COUNT 2.1 K/mm3 (4.0-10.0)
[2023-07-02 06:32] LABS: POTASSIUM 3.6 mmol/L (3.5-5.1)
[2023-07-02 06:34] LABS: CALCIUM 7.7 mg/dL (8.5-10.1)
[2023-07-02 06:35] LABS: ALBUMIN 1.8 g/dl (3.4-5.0); MAGNESIUM 2.3 mg/dL (1.8-2.4)
[2023-07-02 06:38] LABS: CREATININE 6.3 mg/dL (0.55-1.3)
[2023-07-02 06:40] LABS: BILIRUBIN,TOTAL 0.4 mg/dL (0.2-1)
[2023-07-02 07:07] LABS: BLOOD UREA NITROGEN 82.8 mg/dL (7-18); PHOSPHOROUS 8.3 mg/dL (2.5-4.9)
[2023-07-02 09:15] LABS: ANISOCYTOSIS 2+; MACROCYTOSIS 0; TOXIC GRANULATION 1+
[2023-07-02] MEDS: levETIRAcetam 500 MG/5 ML INJECTION VIAL IVPB SCH ×2 (09:30→19:25)
[2023-07-02] MEDS: PANTOPRAZOLE SODIUM 40 MG VIAL IVPUSH SCH (09:44)
[2023-07-02] MEDS: LEVOTHYROXINE SODIUM 100 MCG 5 ML VIAL IVPUSH SCH (09:44)
[2023-07-02] MEDS: POMALYST 2 MG PO SCH (09:45)
[2023-07-02] MEDS: VASOPRESSIN 40 UNITS/100 ML BAG IV SCH (09:45)
[2023-07-02] MEDS ORDERED: SODIUM CHLORIDE 250 ML IV PRN (14:31)
[2023-07-02] MEDS: FENTANYL NS IVPB 500 MCG/100 ML BAG IVPB SCH (16:28)
[2023-07-02] MEDS: NOREPINEPHRINE BITARTRATE/D5W 8 MG/250 ML BAG IVPB SCH (16:29)
[2023-07-03] MEDS: DEXAMETHASONE SOD PHOSPHATE 10 MG/1 ML VIAL IVPUSH SCH ×3 (02:14→17:18)
[2023-07-03] MEDS: ARTIFICIAL TEARS (POLYVINYL ALCOHOL) OPTH DROPS OU SCH ×3 (05:34→21:25)
[2023-07-03 08:18] LABS: HEMATOCRIT 25.4 % (32.4-45.2); HEMOGLOBIN 8.4 GM/dL (10.7-15.3); MCH 33.1 pg (25.7-33.7); MCHC 33.1 g/dl (32.0-36.0); MEAN CELL VOLUME 99.8 fl (80-96); MEAN PLT VOLUME 9.7 fl (7.5-11.1); PLATELET COUNT 121 10^3/uL (134-434); RBC 2.54 M/mm3 (3.60-5.2); RDW 24.3 % (11.6-15.6); WHITE BLOOD COUNT 2.4 K/mm3 (4.0-10.0)
[2023-07-03 08:27] LABS: CHLORIDE 100 mmol/L (98-107); POTASSIUM 3.9 mmol/L (3.5-5.1); SODIUM 137 mmol/L (136-145)
[2023-07-03 08:37] LABS: ALBUMIN 1.7 g/dl (3.4-5.0); ANION GAP 15 mmol/L (4-13); CALCIUM 7.9 mg/dL (8.5-10.1); CO2 23 mmol/L (21-32); GLUCOSE,RANDOM 136 mg/dL (74-106); MAGNESIUM 2.6 mg/dL (1.8-2.4)
[2023-07-03 08:40] LABS: SGOT/AST 25 U/L (15-37); SGPT/ALT 73 U/L (13-61)
[2023-07-03 08:41] LABS: BILIRUBIN,TOTAL 0.4 mg/dL (0.2-1); TOT PROT 7.7 g/dl (6.4-8.2)
[2023-07-03 08:42] LABS: ALK PHOS 119 U/L (45-117)
[2023-07-03 09:14] LABS: ANISOCYTOSIS 1+; MACROCYTOSIS 0
[2023-07-03 09:46] LABS: BLOOD UREA NITROGEN 112.1 mg/dL (7-18); CREATININE 8.5 mg/dL (0.55-1.3); PHOSPHOROUS 11.2 mg/dL (2.5-4.9)
[2023-07-03] MEDS: LEVOTHYROXINE SODIUM 100 MCG 5 ML VIAL IVPUSH SCH (12:31)
[2023-07-03] MEDS: levETIRAcetam 500 MG/5 ML INJECTION VIAL IVPB SCH ×2 (12:31→19:32)
[2023-07-03] MEDS: PANTOPRAZOLE SODIUM 40 MG VIAL IVPUSH SCH (12:31)
[2023-07-03] MEDS: VASOPRESSIN 40 UNITS/100 ML BAG IV SCH (12:32)
[2023-07-03] MEDS: POMALYST 2 MG PO SCH (12:32)
[2023-07-03] MEDS: NOREPINEPHRINE BITARTRATE/D5W 8 MG/250 ML BAG IVPB SCH ×2 (12:32→19:33)
[2023-07-03] MEDS: PROPOFOL 1,000,000 MCG/100 ML VIAL IVPB SCH (12:33)
[2023-07-03] MEDS: FENTANYL NS IVPB 500 MCG/100 ML BAG IVPB SCH ×2 (16:27)
[2023-07-04] MEDS: DEXAMETHASONE SOD PHOSPHATE 10 MG/1 ML VIAL IVPUSH SCH ×2 (01:46→09:03)
[2023-07-04] MEDS: FENTANYL NS IVPB 500 MCG/100 ML BAG IVPB SCH ×2 (01:46→16:08)
[2023-07-04] MEDS: ARTIFICIAL TEARS (POLYVINYL ALCOHOL) OPTH DROPS OU SCH ×3 (06:00→22:25)
[2023-07-04] MEDS: VASOPRESSIN 40 UNITS/100 ML BAG IV SCH (06:30)
[2023-07-04] MEDS: levETIRAcetam 500 MG/5 ML INJECTION VIAL IVPB SCH ×2 (08:15→20:30)
[2023-07-04 08:40] LABS: HEMATOCRIT 24.8 % (32.4-45.2); HEMOGLOBIN 8.2 GM/dL (10.7-15.3); MCH 33.1 pg (25.7-33.7); MEAN CELL VOLUME 100.3 fl (80-96); MEAN PLT VOLUME 9.6 fl (7.5-11.1); PLATELET COUNT 126 10^3/uL (134-434); RBC 2.47 M/mm3 (3.60-5.2); RDW 24.1 % (11.6-15.6); WHITE BLOOD COUNT 2.5 K/mm3 (4.0-10.0)
[2023-07-04 08:49] LABS: POTASSIUM 3.8 mmol/L (3.5-5.1)
[2023-07-04 08:58] LABS: ALBUMIN 1.7 g/dl (3.4-5.0); MAGNESIUM 2.2 mg/dL (1.8-2.4)
[2023-07-04] MEDS: LEVOTHYROXINE SODIUM 100 MCG 5 ML VIAL IVPUSH SCH (08:59)
[2023-07-04] MEDS: POMALYST 2 MG PO SCH (08:59)
[2023-07-04 09:01] LABS: CREATININE 5.5 mg/dL (0.55-1.3)
[2023-07-04 09:02] LABS: BILIRUBIN,TOTAL 0.5 mg/dL (0.2-1)
[2023-07-04 09:03] LABS: TOT PROT 7.2 g/dl (6.4-8.2)
[2023-07-04] MEDS: PANTOPRAZOLE SODIUM 40 MG VIAL IVPUSH SCH (09:04)
[2023-07-04 09:06] LABS: BLOOD UREA NITROGEN 86.8 mg/dL (7-18); PHOSPHOROUS 8.9 mg/dL (2.5-4.9)
[2023-07-04 09:54] LABS: ANISOCYTOSIS 2+; MACROCYTOSIS 1+
[2023-07-04] MEDS: PROPOFOL 1,000,000 MCG/100 ML VIAL IVPB SCH ×3 (11:39→22:25)
[2023-07-04] MEDS ORDERED: SODIUM CHLORIDE 250 ML IV PRN (16:20)
[2023-07-04] MEDS: NOREPINEPHRINE BITARTRATE/D5W 8 MG/250 ML BAG IVPB SCH (19:35)
[2023-07-04 23:20] LABS: HEMATOCRIT 28.6 % (32.4-45.2); HEMOGLOBIN 9.7 GM/dL (10.7-15.3); MCH 33.4 pg (25.7-33.7); MEAN CELL VOLUME 98.2 fl (80-96); MEAN PLT VOLUME 9.1 fl (7.5-11.1); PLATELET COUNT 169 10^3/uL (134-434); RBC 2.91 M/mm3 (3.60-5.2); RDW 23.8 % (11.6-15.6); WHITE BLOOD COUNT 4.3 K/mm3 (4.0-10.0)
[2023-07-04 23:22] LABS: ADD RBC MORPHOLOGY YES
[2023-07-04 23:38] LABS: CHLORIDE 99 mmol/L (98-107); POTASSIUM 3.8 mmol/L (3.5-5.1); SODIUM 136 mmol/L (136-145)
[2023-07-04 23:40] LABS: CALCIUM 8.2 mg/dL (8.5-10.1); GLUCOSE,RANDOM 125 mg/dL (74-106)
[2023-07-04 23:41] LABS: ALBUMIN 1.9 g/dl (3.4-5.0); ANION GAP 14 mmol/L (4-13); CO2 22 mmol/L (21-32); MAGNESIUM 2.5 mg/dL (1.8-2.4)
[2023-07-04 23:44] LABS: CREATININE 6.5 mg/dL (0.55-1.3); SGPT/ALT 62 U/L (13-61)
[2023-07-04 23:45] LABS: TOT PROT 7.9 g/dl (6.4-8.2)
[2023-07-04 23:46] LABS: BILIRUBIN,TOTAL 0.4 mg/dL (0.2-1)
[2023-07-04 23:47] LABS: ALK PHOS 126 U/L (45-117)
[2023-07-04 23:51] LABS: SGOT/AST 23 U/L (15-37)
[2023-07-04 23:59] LABS: ANISOCYTOSIS 3+; MACROCYTOSIS 1+; OVALOCYTE 1+
[2023-07-05] MEDS: PANTOPRAZOLE SODIUM 40 MG VIAL IVPUSH SCH ×3 (00:20→21:31)
[2023-07-05] MEDS: PROPOFOL 1,000,000 MCG/100 ML VIAL IVPB SCH ×4 (03:29→23:46)
[2023-07-05] MEDS: ARTIFICIAL TEARS (POLYVINYL ALCOHOL) OPTH DROPS OU SCH ×3 (06:06→21:31)
[2023-07-05] MEDS: VASOPRESSIN 40 UNITS/100 ML BAG IV SCH (06:07)
[2023-07-05 07:37] LABS: HEMATOCRIT 30.1 % (32.4-45.2); HEMOGLOBIN 9.7 GM/dL (10.7-15.3); MCH 32.6 pg (25.7-33.7); MCHC 32.3 g/dl (32.0-36.0); MEAN CELL VOLUME 100.7 fl (80-96); MEAN PLT VOLUME 9.8 fl (7.5-11.1); PLATELET COUNT 189 10^3/uL (134-434); RBC 2.99 M/mm3 (3.60-5.2); RDW 23.9 % (11.6-15.6); WHITE BLOOD COUNT 5.4 K/mm3 (4.0-10.0)
[2023-07-05 08:32] LABS: CHLORIDE 100 mmol/L (98-107); POTASSIUM 3.9 mmol/L (3.5-5.1); SODIUM 137 mmol/L (136-145)
[2023-07-05 08:55] LABS: ALBUMIN 1.7 g/dl (3.4-5.0); ANION GAP 17 mmol/L (4-13); CALCIUM 7.9 mg/dL (8.5-10.1); CO2 20 mmol/L (21-32); GLUCOSE,RANDOM 109 mg/dL (74-106); MAGNESIUM 2.4 mg/dL (1.8-2.4)
[2023-07-05 08:58] LABS: CREATININE 7.4 mg/dL (0.55-1.3); SGPT/ALT 55 U/L (13-61)
[2023-07-05 09:00] LABS: BILIRUBIN,TOTAL 0.6 mg/dL (0.2-1); SGOT/AST 19 U/L (15-37); TOT PROT 7.2 g/dl (6.4-8.2)
[2023-07-05] MEDS: FENTANYL NS IVPB 500 MCG/100 ML BAG IVPB SCH ×2 (09:08→21:30)
[2023-07-05] MEDS: LEVOTHYROXINE SODIUM 100 MCG 5 ML VIAL IVPUSH SCH (09:08)
[2023-07-05] MEDS: levETIRAcetam 500 MG/5 ML INJECTION VIAL IVPB SCH ×2 (09:08→21:31)
[2023-07-05] MEDS: POMALYST 2 MG PO SCH (09:09)
[2023-07-05 09:24] LABS: ALK PHOS 88 U/L (45-117); BLOOD UREA NITROGEN 126.4 mg/dL (7-18)
[2023-07-05 09:28] LABS: ANISOCYTOSIS 1+; MACROCYTOSIS 1+
[2023-07-05] MEDS: ALBUMIN HUMAN 25% 12.5 GM/50 ML VIAL IV SCH ×4 (14:35→16:05)
[2023-07-05] MEDS: NOREPINEPHRINE BITARTRATE/D5W 8 MG/250 ML BAG IVPB SCH (21:30)
[2023-07-06] MEDS ORDERED: MAGNESIUM OXIDE 400 MG TABLET (FP) PO ONE (02:30)
[2023-07-06 03:57] LABS: ARTERIAL BLOOD GAS BASE EXCESS -1.9 mmol/L (-2-2); ARTERIAL BLOOD GAS PO2 96.2 mmHg (80-100); ARTERIAL BLOOD GAS pH 7.344 (7.350-7.450); HEMATOCRIT 22.4 % (32.4-45.2); HEMOGLOBIN 7.7 GM/dL (10.7-15.3); MCH 33.5 pg (25.7-33.7); MCHC 34.2 g/dl (32.0-36.0); MEAN CELL VOLUME 97.8 fl (80-96); MEAN PLT VOLUME 9.1 fl (7.5-11.1); PLATELET COUNT 126 10^3/uL (134-434); RBC 2.29 M/mm3 (3.60-5.2); RDW 24.2 % (11.6-15.6); WHITE BLOOD COUNT 4.9 K/mm3 (4.0-10.0)
[2023-07-06 04:32] LABS: POTASSIUM 3.6 mmol/L (3.5-5.1)
[2023-07-06 04:35] LABS: MAGNESIUM 2.1 mg/dL (1.8-2.4)
[2023-07-06 04:38] LABS: CREATININE 5.3 mg/dL (0.55-1.3); PHOSPHOROUS 7.9 mg/dL (2.5-4.9)
[2023-07-06 04:39] LABS: BILIRUBIN,TOTAL 0.5 mg/dL (0.2-1)
[2023-07-06 04:40] LABS: TOT PROT 6.6 g/dl (6.4-8.2)
[2023-07-06 06:25] LABS: ANISOCYTOSIS 3+; MACROCYTOSIS 0; ROULEAU 1+
[2023-07-06] MEDS: ARTIFICIAL TEARS (POLYVINYL ALCOHOL) OPTH DROPS OU SCH ×3 (06:43→21:13)
[2023-07-06] MEDS: VASOPRESSIN 40 UNITS/100 ML BAG IV SCH ×2 (06:43→19:45)
[2023-07-06 06:58] LABS: BLOOD UREA NITROGEN 72.2 mg/dL (7-18)
[2023-07-06 07:29] LABS: HEMATOCRIT 22.4 % (32.4-45.2); HEMOGLOBIN 7.5 GM/dL (10.7-15.3); MCH 33.3 pg (25.7-33.7); MCHC 33.4 g/dl (32.0-36.0); MEAN CELL VOLUME 99.7 fl (80-96); MEAN PLT VOLUME 9.7 fl (7.5-11.1); PLATELET COUNT 129 10^3/uL (134-434); RBC 2.25 M/mm3 (3.60-5.2); RDW 23.6 % (11.6-15.6)
[2023-07-06] MEDS ORDERED: AMIODARONE IN DEXTROSE,ISO-OSM 150 MG/100 ML BAG IVPB ONE (08:08)
[2023-07-06] MEDS ORDERED: AMIODARONE IN DEXTROSE,ISO-OSM 360 MG/200 ML BAG IV SCH ×2 (08:30→14:30)
[2023-07-06] MEDS: levETIRAcetam 500 MG/5 ML INJECTION VIAL IVPB SCH ×2 (08:56→19:44)
[2023-07-06] MEDS: PANTOPRAZOLE SODIUM 40 MG VIAL IVPUSH SCH (09:24)
[2023-07-06 10:21] LABS: ANISOCYTOSIS 2+; MACROCYTOSIS 0
[2023-07-06] MEDS: LEVOTHYROXINE SODIUM 100 MCG 5 ML VIAL IVPUSH SCH (10:40)
[2023-07-06] MEDS ORDERED: PANTOPRAZOLE SODIUM 80 MG in SODIUM CHLORIDE 100 ML IVPB SCH (10:45)
[2023-07-06] MEDS: POMALYST 2 MG PO SCH (10:55)
[2023-07-06] MEDS: FENTANYL NS IVPB 500 MCG/100 ML BAG IVPB SCH ×4 (11:39→23:30)
[2023-07-06] MEDS ORDERED: PANTOPRAZOLE SODIUM 160 MG in SODIUM CHLORIDE 290 ML IVPB SCH (12:00)
[2023-07-06] MEDS ORDERED: MIDAZOLAM IN 0.9 % SOD.CHLORID 100 MG/100 ML PLAST..BAG IVPB SCH ×2 (12:30→13:28)
[2023-07-06] MEDS ORDERED: MIDAZOLAM HCL 5 MG/1 ML Single Dose Vial IVPUSH STA ×2 (13:27→18:41)
[2023-07-06] MEDS ORDERED: FENTANYL CITRATE/PF 50 MCG/ML VIAL IVPUSH STA ×2 (13:34→18:41)
[2023-07-06] MEDS ORDERED: PHENYLEPHRINE HCL 10 MG/1 ML SINGLE DOSE VIAL ONE ×2 (14:36→14:45)
[2023-07-06] MEDS ORDERED: PHENYLEPHRINE NS PREMIX 50,000 MCG/500 ML BAG CVP SCH (14:45)
[2023-07-06] MEDS ORDERED: NOREPINEPHRINE BITARTRATE 4 MG/4 ML ML IV ONE ×3 (15:04→17:56)
[2023-07-06] MEDS ORDERED: NOREPINEPHRINE BITARTRATE 4,000 MCG in DEXTROSE 5%-WATER - 496 ML IV SCH (15:15)
[2023-07-06] MEDS ORDERED: DEXTROSE 50%-WATER 25 GM/50 ML DISP.SYRIN ONE (17:07)
[2023-07-06] MEDS ORDERED: DEXTROSE 50%-WATER 25 GM/50 ML DISP.SYRIN IVPUSH STA (18:05)
[2023-07-06 18:37] LABS: HEMATOCRIT 24.1 % (32.4-45.2); HEMOGLOBIN 8.2 GM/dL (10.7-15.3); MCH 32.9 pg (25.7-33.7); MCHC 33.9 g/dl (32.0-36.0); MEAN PLT VOLUME 8.8 fl (7.5-11.1); PLATELET COUNT 112 10^3/uL (134-434); RBC 2.48 M/mm3 (3.60-5.2); RDW 23.3 % (11.6-15.6); WHITE BLOOD COUNT 4.5 K/mm3 (4.0-10.0)
[2023-07-06] MEDS ORDERED: fentaNYL CITRATE 250 MCG/5 ML VIAL ONE (18:47)
[2023-07-06 18:50] LABS: ARTERIAL BLD GAS O2 SATURATION 94.8 % (95-98); ARTERIAL BLOOD GAS BASE EXCESS -9.1 mmol/L (-2-2); ARTERIAL BLOOD GAS PO2 85.3 mmHg (80-100); ARTERIAL BLOOD GAS pH 7.238 (7.350-7.450)
[2023-07-06 18:53] LABS: VENT MODE A/C; VENT RATE 14
[2023-07-06] MEDS: PROPOFOL 1,000,000 MCG/100 ML VIAL IVPB SCH (19:02)
[2023-07-06] MEDS ORDERED: VASOPRESSIN 20 UNITS/ML VIAL IV ONE (19:11)
[2023-07-06 19:26] LABS: LACTIC ACID 5.4 mmol/L (0.4-2.0)
[2023-07-06] MEDS ORDERED: SODIUM BICARBONATE 8.4% 50 MEQ/50 ML DISP.SYRIN IVPUSH STA (19:26)
[2023-07-06 19:28] LABS: POTASSIUM 3.5 mmol/L (3.5-5.1)
[2023-07-06 19:30] LABS: CALCIUM 7.5 mg/dL (8.5-10.1)
[2023-07-06 19:31] LABS: BLOOD UREA NITROGEN 86.4 mg/dL (7-18)
[2023-07-06 19:34] LABS: CREATININE 6.9 mg/dL (0.55-1.3); PHOSPHOROUS 7.3 mg/dL (2.5-4.9)
[2023-07-06] MEDS ORDERED: HYDROCORTISONE SOD SUCCINATE 100 MG/2 ML VIAL ONE (19:35)
[2023-07-06] MEDS ORDERED: SODIUM BICARBONATE 8.4% 50 MEQ/50 ML DISP.SYRIN ONE (19:35)
[2023-07-06] MEDS: HYDROCORTISONE SOD SUCCINATE 100 MG/2 ML VIAL IVPB SCH (19:38)
[2023-07-06 19:50] LABS: INR 1.26 (0.83-1.09); PROTHROMBIN TIME (PATIENT) 14.6 SEC (9.7-13.0)
[2023-07-06 19:53] LABS: ACTIVATED PTT 30.7 SECONDS (25.2-36.5)
[2023-07-06] MEDS: NOREPINEPHRINE BITARTRATE/D5W 8 MG/250 ML BAG IVPB SCH ×2 (20:01→20:05)
[2023-07-06] MEDS ORDERED: HEPARIN NA (PORCINE) 5,000 UNITS/ML 1ML VIAL SQ SCH (22:00)
[2023-07-06] MEDS ORDERED: CISATRACURIUM BESYLATE 200 MG/20 ML VIAL IV STA (22:05)
[2023-07-06] MEDS ORDERED: PIPERACILLIN/TAZOB 3.375 GM 3.375 GM in DEXTROSE 5%-WATER - 50 ML IVPB SCH ×2 (22:15→22:45)
[2023-07-06] MEDS ORDERED: VANCOMYCIN PREMIX 1.5 GM 1,500 MG/300 ML BAG IVPB ONE (22:30)
[2023-07-06] MEDS ORDERED: VECURONIUM BROMIDE 50 MG/50 ML VIAL IVPUSH STA (22:38)
[2023-07-06] MEDS ORDERED: MINERAL OIL/PETROLATUM,WHITE 3.5 GM TUBE OU PRN (22:39)
[2023-07-06] MEDS ORDERED: VECURONIUM BROMIDE 100 MG/100 ML BAG IVPB SCH (22:45)
[2023-07-06] MEDS ORDERED: VECURONIUM BROMIDE 20 MG/20 ML VIAL ONE (23:30)
[2023-07-07] MEDS: HYDROCORTISONE SOD SUCCINATE 100 MG/2 ML VIAL IVPB SCH (01:11)
[2023-07-07 02:19] VITALS: RESP 20
[2023-07-07] MEDS: NOREPINEPHRINE BITARTRATE/D5W 8 MG/250 ML BAG IVPB SCH (03:19)
[2023-07-07 04:58] LABS: ARTERIAL BLD GAS O2 SATURATION 77.8 % (95-98); ARTERIAL BLOOD GAS BASE EXCESS -18.8 mmol/L (-2-2); ARTERIAL BLOOD GAS PO2 68.3 mmHg (80-100)
[2023-07-07 05:15] LABS: ALLENS TEST POSITIVE; VENT MODE A/C; VENT RATE 20
[2023-07-07 05:17] LABS: ARTERIAL BLOOD GAS pH 6.911 (7.350-7.450)
[2023-07-07] MEDS ORDERED: SODIUM BICARBONATE 8.4% 50 MEQ/50 ML DISP.SYRIN ONE (05:23)
[2023-07-07] MEDS ORDERED: SODIUM BICARBONATE 8.4% 50 MEQ/50 ML DISP.SYRIN IVPUSH STA ×2 (05:36)
[2023-07-07] MEDS ORDERED: SODIUM BICARBONATE 8.4% - 150 MEQ in DEXTROSE 5%-WATER - 950 ML IVPB SCH (05:45)
[2023-07-07 06:07] VITALS: BP 116/85; PULSE 51; TEMP 98.1
[2023-07-07] MEDS: VASOPRESSIN 40 UNITS/100 ML BAG IV SCH (06:29)
[2023-07-07] MEDS: ARTIFICIAL TEARS (POLYVINYL ALCOHOL) OPTH DROPS OU SCH (06:30)
[2023-07-07 06:53] LABS: HEMATOCRIT 23.6 % (32.4-45.2); HEMOGLOBIN 7.6 GM/dL (10.7-15.3); MCH 33.2 pg (25.7-33.7); MCHC 32.3 g/dl (32.0-36.0); MEAN CELL VOLUME 102.8 fl (80-96); MEAN PLT VOLUME 9.7 fl (7.5-11.1); PLATELET COUNT 117 10^3/uL (134-434); RDW 24.4 % (11.6-15.6); WHITE BLOOD COUNT 6.4 K/mm3 (4.0-10.0)
[2023-07-07 07:15] LABS: LACTIC ACID 13.1 mmol/L (0.4-2.0)
[2023-07-07 07:19] LABS: CHLORIDE 98 mmol/L (98-107); SODIUM 136 mmol/L (136-145)
[2023-07-07 07:22] LABS: CALCIUM 7.2 mg/dL (8.5-10.1)
[2023-07-07 07:23] LABS: BLOOD UREA NITROGEN 92.8 mg/dL (7-18); CO2 17 mmol/L (21-32)
[2023-07-07 07:26] LABS: SGOT/AST 321 U/L (15-37); SGPT/ALT 248 U/L (13-61)
[2023-07-07 07:27] LABS: BILIRUBIN,TOTAL 1.4 mg/dL (0.2-1)
[2023-07-07 07:28] LABS: ALK PHOS 86 U/L (45-117)
[2023-07-07 07:31] LABS: ALBUMIN 1.2 g/dl (3.4-5.0); ANION GAP 20 mmol/L (4-13); CREATININE 7.6 mg/dL (0.55-1.3); GLUCOSE,RANDOM 31 mg/dL (74-106); POTASSIUM 6.6 mmol/L (3.5-5.1)
[2023-07-07 11:20] LABS: ANISOCYTOSIS 3+; MACROCYTOSIS 0; OVALOCYTE 2+; TOXIC GRANULATION 1+
== END 2023-07-07 06:43 | disposition expired | DRG 870 ==
LOC: JER 17:19 → JERBED 21:36 → J6S 06-18 02:00 → OBSVTOIN 06-19 10:22 → JICU 06-23 09:16
PROVIDERS: ADMIT Internal Medicine; ATTEND Internal Medicine
PROC: 4A133B1 Monitoring of Arterial Pressure, Peripheral, Percutaneous Approach (ICD-10-PCS; 2023-06-23)
PROC: 4A133J1 Monitoring of Arterial Pulse, Peripheral, Percutaneous Approach (ICD-10-PCS; 2023-06-23)
PROC: 4A143B0 Monitoring of Venous Pressure, Central, Percutaneous Approach (ICD-10-PCS; 2023-06-23)
PROC: 5A1D70Z Performance of Urinary Filtration, Intermittent, Less than 6 Hours Per Day (ICD-10-PCS; 2023-06-25)
PROC: 5A1955Z Respiratory Ventilation, Greater than 96 Consecutive Hours (ICD-10-PCS; principal; 2023-06-27)
PROC: 0BH17EZ Insertion of Endotracheal Airway into Trachea, Via Natural or Artificial Opening (ICD-10-PCS; 2023-06-27)
PROC: 30233N1 Transfusion of Nonautologous Red Blood Cells into Peripheral Vein, Percutaneous Approach (ICD-10-PCS; 2023-06-27)
PROC: 05HM33Z Insertion of Infusion Device into Right Internal Jugular Vein, Percutaneous Approach (ICD-10-PCS; 2023-06-28)
PROC: B543ZZA Ultrasonography of Right Jugular Veins, Guidance (ICD-10-PCS; 2023-06-28)
PROC: 05HN33Z Insertion of Infusion Device into Left Internal Jugular Vein, Percutaneous Approach (ICD-10-PCS; 2023-07-05)
PROC: B544ZZA Ultrasonography of Left Jugular Veins, Guidance (ICD-10-PCS; 2023-07-05)
PROC: 05HM33Z Insertion of Infusion Device into Right Internal Jugular Vein, Percutaneous Approach (ICD-10-PCS; 2023-07-06)
PROC: B543ZZA Ultrasonography of Right Jugular Veins, Guidance (ICD-10-PCS; 2023-07-06)
DX: A41.9 Sepsis, unspecified organism (principal); G93.41 Metabolic encephalopathy; J18.9 Pneumonia, unspecified organism; N17.0 Acute kidney failure with tubular necrosis; R65.21 Severe sepsis with septic shock; J96.01 Acute respiratory failure with hypoxia; C90.00 Multiple myeloma not having achieved remission; Z68.43 Body mass index [BMI] 50.0-59.9, adult; N39.0 Urinary tract infection, site not specified; I13.0 Hypertensive heart and chronic kidney disease with heart failure and stage 1 through stage 4 chronic kidney disease, or unspecified chronic kidney disease; G62.9 Polyneuropathy, unspecified; M54.9 Dorsalgia, unspecified; E03.9 Hypothyroidism, unspecified; I50.9 Heart failure, unspecified; E78.5 Hyperlipidemia, unspecified; E66.01 Morbid (severe) obesity due to excess calories; I48.91 Unspecified atrial fibrillation; G40.901 Epilepsy, unspecified, not intractable, with status epilepticus; D50.9 Iron deficiency anemia, unspecified; I46.9 Cardiac arrest, cause unspecified; N18.9 Chronic kidney disease, unspecified
CPT/HCPCS: 31500; 36415; 36430; 36600; 70450-TC; 71045-TC-FY; 72100-TC-FY; 72131-TC; 76775-TC; 76856-TC; 80048; 80053; 80061; 80177; 81003; 82140; 82272; 82436; 82550; 82553; 82570; 82803; 82962; 83516; 83520; 83605; 83735; 83883; 84100; 84133; 84156; 84300; 84311; 84439; 84443; 84484; 85025; 85027; 85384; 85610; 85651; 85730; 86038; 86140; 86225; 86256; 86704; 86803; 86850; 86900; 86901; 86922; 87040; 87070; 87086; 87186; 87205; 87340; 87517; 87635; 93005; 93010; 93306-TC; 94002; 97162-GP; 99285-25; G0378; J0282; J0475; J1100; J1644; J3490; P9047; P9058